=== PATIENT | female | born 1965 ===

== ENCOUNTER 2020-04-08 07:56 | Outpatient (RCR) | payer BC, SELFPAY | END 2020-05-08 07:58 | disposition home or self-care (01) | LOC: HO.WCC 07:56 | PROVIDERS: PCP Internal Medicine; Visit Provider Surgery | DX: L73.2 Hidradenitis suppurativa (principal); L08.9 Local infection of the skin and subcutaneous tissue, unspecified; I10 Essential (primary) hypertension; Z79.2 Long term (current) use of antibiotics; Z85.3 Personal history of malignant neoplasm of breast; Z92.3 Personal history of irradiation | CPT/HCPCS: 99203; 99214 ==

== ENCOUNTER → 2020-04-28 13:30 | Outpatient (BNVA) | payer BC, SELFPAY | PROVIDERS: PCP Internal Medicine; Visit Provider Internal Medicine | DX: Z76.89 Persons encountering health services in other specified circumstances (principal) ==

== ENCOUNTER 2020-09-01 06:36 | Day surgery (SDC) | payer BC, SELFPAY ==
[2020-09-01] VITALS (7 sets, daily range): BP systolic 110–132; BP diastolic 64–74; PULSE 79–96; RESP 16–20; TEMP 36.1–36.8; O2SAT 93–99; BMI 38.4; BMI 37.5
--- NOTE | ~2020-09-01 | CT_ITS ---
EXAMINATION: CT ABDOMEN AND PELVIS WITHOUT CONTRAST CLINICAL INFORMATION: Left flank and left lower abdominal pain. Likely stone. COMPARISON: CT abdomen/pelvis dated 12/21/2016. TECHNIQUE: Multidetector volumetric imaging was performed from the superior aspect of the liver through the pubic symphysis. Sagittal and coronal reformatted images were obtained on the technologist's workstation. This CT examination was performed using dose optimization techniques as appropriate, variously including the following: *Automated exposure control *Adjustment of mA and/or kV according to patient size (this includes techniques or standardized protocols for targeted exams where dose is matched to indication/reason for exam; i.e. extremities or head) *Use of iterative reconstruction technique DLP: 858 mGy-cm. FINDINGS: LUNG BASES: The visualized lung bases are unremarkable. LIVER, GALLBLADDER, AND BILIARY TREE: The liver is normal in size and shape. Parenchymal hypoattenuation, consistent with steatosis. No focal hepatic lesion or biliary ductal dilatation is present. Cholelithiasis. The gallbladder is slightly distended without wall thickening or associated inflammatory change. PANCREAS: Unremarkable. SPLEEN: Unremarkable. ADRENAL GLANDS: Unremarkable. KIDNEYS AND URETERS: There is a proximal left ureteral stone which measures approximately 0.7 x 0.5 cm and 1045 Hounsfield units. This is located at the level of the L2-L3 intervertebral disc and approximately 14.8 cm from the posterior axillary line. There is mild proximal hydroureteronephrosis with prominent left perinephric stranding. No additional renal or ureteral stone. No right-sided hydronephrosis or hydroureter. BLADDER: Unremarkable. GASTROINTESTINAL TRACT: No bowel wall thickening or associated inflammatory change. No small or large bowel obstruction. Unremarkable appendix. PERITONEAL CAVITY: No intra-abdominal free air or free fluid. No intra-abdominal mass or organized fluid collection/abscess formation. ABDOMINAL WALL: No significant hernia is appreciated. LYMPH NODES: No significant lymphadenopathy. VASCULAR: Unremarkable. PELVIC VISCERA: The uterus and adnexa are unremarkable. OSSEOUS STRUCTURES: Unremarkable. CT/CT abdomen pelvis wo con IMPRESSION: 1. Proximal left ureteral stone measuring up to 0.7 cm and 1045 Hounsfield units. This is located at the level of the L2-L3 intervertebral disc and approximately 14.8 cm from the posterior axillary line. There is mild proximal hydroureteronephrosis with prominent left perinephric stranding. 2. No additional renal or ureteral stone. No right-sided hydronephrosis or hydroureter. Unremarkable urinary bladder. 3. Cholelithiasis without CT evidence of acute cholecystitis.
--- NOTE | ~2020-09-01 | FL_ITS ---
EXAMINATION: XR FLUOROSCOPY WITH IMAGES CLINICAL INFORMATION: Cystoscopy, ureteroscopy, retro, laser, stent COMPARISON: CT from earlier today TECHNIQUE: Fluoroscopy performed by Dr. Keyon Saba. Fluoroscopy time: 37.8 seconds Images: 2 FINDINGS: There is evidence of retrograde injection of contrast into what is likely the left ureter. A ureteral stent is placed. FL/FL guidance in OR IMPRESSION: Fluoroscopic guidance for retrograde pyelogram with ureteral stent placement. Please refer to procedural report for further information.
[2020-09-01 06:26] LABS: MANUAL DIFF FLAG NO
[2020-09-01 06:30] LABS: Basophils Percent Auto 0.3 % (0-2); Eosinophils Absolute Auto 0.1 X10*3/uL (0.0-0.4); Eosinophils Percent Auto 0.6 % (0-4); Glucose Urine UA NEG (NEG); Hematocrit 41.2 % (37-47); Hemoglobin 12.9 g/dl (12.0-16.0); Imm Gran Abs Auto 0.06 X10*3/uL (0.00-0.03); Imm Gran Pct Auto 0.6 % (0.0-0.4); Leukocyte Esterase Urine TRACE (NEG); Lymphocytes Absolute Auto 0.9 X10*3/uL (1.2-4.9); Lymphocytes Percent Auto 8.9 % (20-40); Mean Corpuscular HGB Conc 31.3 g/dl (31.0-35.0); Mean Corpuscular Hemoglobin 27.6 pg (27.0-33.0); Mean Platelet Volume 10.5 fL (9.4-12.3); Monocytes Absolute Auto 0.6 X10*3/uL (0.1-1.2); Monocytes Percent Auto 6.1 % (2-11); Neutrophils Absolute Auto 7.9 X10*3/uL (2.0-8.3); Neutrophils Percent Auto 83.5 % (45-73); Nitrite Urine NEG (NEG); Platelet Count 241 X10*3/uL (160-400); Red Blood Count 4.68 X10*6/uL (4.20-5.50); Red Cell Distribution Width 13.9 % (11.0-16.0); Specific Gravity - Urine >= 1.030 (1.005-1.025); UACC Culture Trigger YES; Urine Blood 3+ (NEG); Urine Ketones NEG (NEG); Urine Protein NEG (NEG-TRACE); White Blood Count 9.5 X10*3/uL (4.8-10.8)
[2020-09-01 06:31] LABS: Appearance Urine HAZY; Color Urine YELLOW
[2020-09-01 06:44] LABS: Bacteria Urine TRACE /LPF; Calcium Oxalate Crystals Urine TRACE /LPF; Mucus Urine TRACE /LPF; RBC Urine 30-49 /HPF (0); Squamous Epithelial Cell Urine 2+ /LPF
--- NOTE | 2020-09-01 06:53 | ED.ABDPAIN ---
HPI - Abdominal Pain General Chief Complaint: Abdominal Pain Stated Complaint: Flank pain Time Seen by Provider: 09/01/20 06:53 Source: patient Mode of arrival: ambulatory Limitations: no limitations History of Present Illness HPI narrative: left flank pain radiating to left lower abdomen for 4 hours MD elicited complaint: abdominal pain and flank pain Pertinent past history: none Onset (ago): hour(s) Pain Consistency: constant Location: LLQ and L flank Severity: moderate Quality: stabbing and sharp Radiation: LLQ Exacerbating factors: nothing Relieving factors: nothing Associated symptoms: nausea, vomiting and chills Related Data Home Medications Medication Instructions Recorded Confirmed anastrozole 1 mg tablet 1 mg PO DAILY 04/28/20 04/28/20 cholecalciferol (vitamin D3) 10 10 mcg PO DAILY 04/28/20 04/28/20 mcg (400 unit) capsule doxycycline hyclate 100 mg capsule 100 mg PO BID 04/28/20 04/28/20 levothyroxine 150 mcg tablet 150 mcg PO DAILY 04/28/20 04/28/20 losartan 25 mg tablet 25 mg PO DAILY 04/28/20 04/28/20 Previous Rx's Medication Instructions Recorded minocycline 100 mg capsule 100 mg PO BID 30 Days #60 cap 04/28/20 naproxen [Naprosyn] 500 mg PO BID #20 tab 09/01/20 ondansetron HCl [Zofran] 4 mg PO Q8H PRN #10 tab 09/01/20 tamsulosin [Flomax] 0.4 mg PO DAILY #10 cap 09/01/20 Allergies Allergy/AdvReac Type Severity Reaction Status Date / Time No Known Allergies Allergy Verified 04/28/20 13:44 [No Known Allergies*] Review of Systems Constitutional: Reports no additional constitutional complaints Eyes: Reports no additional eye complaints Denies dizziness Cardiovascular: Reports no additional cardiovascular complaints Respiratory: Reports as per HPI Gastrointestinal: Reports no additional gastrointestinal complaints Genitourinary: Reports no additional female genitourinary complaints Musculoskeletal: Reports no additional musculoskeletal complaints Skin/Breast: Denies rash Reports system reviewed and no additional complaints, except as documented, Denies dizziness and Denies Sensory deficit (Neuro) Psychiatric: Denies anxiety Physical Exam Vital Signs: Vital Signs: Last Vital Signs Temp 97.9 F 09/01/20 06:17 Pulse 89 09/01/20 06:17 Resp 18 09/01/20 06:17 BP 132/74 09/01/20 06:17 Pulse Ox 99 09/01/20 06:17 Body Mass Index 38.4 Const: General: healthy appearing Nutritional Appearance: overweight Orientation/consciousness: oriented to person and patient oriented x3 Limitations: no limitations HENMT: Head: Yes normal to inspection Ears: external ears normal General nose exam: Normal external nose present Mouth: Normal oral and palatal mucosa present and oropharynx normal Throat: Yes posterior oropharynx normal Eyes: General: appearance normal, both eyes and all related structures Neck: Other: supple Neck: Yes normal visual inspection Chest: Chest palpation & inspection: normal inspection of the chest Resp: Auscultation: clear to auscultation bilaterally Cardio: Jugular venous distension: no JVD Rate: regular rate Rhythm: regular rhythm Heart sounds: S1 normal heart sound present and S2 normal heart sound present GI: Inspection: Yes normal to inspection Palpation (GI): Soft to palpation, nontender and No hepatosplenomegaly present Auscultation: normal bowel sounds Back/Spine/Pelvis: Other: left CVAT Skin: General skin exam: no rashes or lesions noted Neuro: General: oriented to person and patient oriented x3 Cranial nerves: Yes CN's II-XII intact bilaterally Motor exam (neuro): 5/5 motor strength present throughout Sensory Exam: No Sensory deficit (Neuro) Extrem: General: Yes normal to inspection Psych: Appearance: grossly normal Course Course Course Narrative: patient with proximal stone 7mmx 5mm will refer to Dr. Saba MDM - Abdominal Pain MDM Narrative Medical decision making narrative: Patient will need likely stone removal referred to Dr. Saba Differential Diagnosis Differential diagnosis: Likely abdominal pain and calculus of kidney Lab Data Result diagrams: 09/01/20 06:16 09/01/20 06:16 Labs: Lab Results 09/01/20 09/01/20 09/01/20 Range/Units 06:16 06:16 06:16 WBC 9.5 (4.8-10.8) X10*3/uL RBC 4.68 (4.20-5.50) X10*6/uL Hgb 12.9 (12.0-16.0) g/dl Hct 41.2 (37-47) % MCV 88.0 (80-98) fL MCH 27.6 (27.0-33.0) pg MCHC 31.3 (31.0-35.0) g/dl RDW 13.9 (11.0-16.0) % Plt Count 241 (160-400) X10*3/uL MPV 10.5 (9.4-12.3) fL Immature Gran % (Auto) 0.6 H (0.0-0.4) % Neut % (Auto) 83.5 H (45-73) % Lymph % (Auto) 8.9 L (20-40) % [place] % (Auto) 6.1 (2-11) % Eos % (Auto) 0.6 (0-4) % Baso % (Auto) 0.3 (0-2) % Lymph # (Auto) 0.9 L (1.2-4.9) X10*3/uL [place] # (Auto) 0.6 (0.1-1.2) X10*3/uL Eos # (Auto) 0.1 (0.0-0.4) X10*3/uL Baso # (Auto) 0.0 (0.0-0.2) X10*3/uL Abs Immat Gran (auto) 0.06 H (0.00-0.03) X10*3/uL Absolute Neuts (auto) 7.9 (2.0-8.3) X10*3/uL Absolute Nucleated RBC 0.000 (0.0-0.012) X10*3/uL Nucleated RBC % (auto) 0.0 (0.0-0.2) /100WBC Sodium 140 (135-145) mmol/L Potassium 4.7 (3.3-5.1) mmol/L Chloride 105 (96-108) mmol/L Carbon Dioxide 25 (22-29) mmol/L Anion Gap 15 (12-20) BUN 23 H (9-16) mg/dL Creatinine 1.70 H (0.5-1.4) mg/dL Estim Creat Clear Calc 49.2 Estimated GFR 31 Random Glucose 112 (60-115) mg/dL Calcium 9.1 (8.4-10.2) mg/dL Total Bilirubin 0.4 (0.0-1.0) mg/dL AST 17 (5-31) U/L ALT 24 (0-31) U/L Alkaline Phosphatase 107 (39-117) U/L Total Protein 7.3 (6.5-8.0) g/dL Albumin 4.4 (3.5-5.0) g/dL Urine Color YELLOW Urine Appearance HAZY Urine pH 6.0 (5.0-8.0) Ur Specific [place] >= 1.030 H (1.005-1.025) Urine Protein NEG (NEG-TRACE) MG/DL Urine Glucose (UA) NEG (NEG) MG/DL Urine Ketones NEG (NEG) MG/DL Urine Blood 3+ H (NEG) Urine Nitrite NEG (NEG) Ur Leukocyte Esterase TRACE H (NEG) Urine RBC 30-49 H (0) /HPF Urine WBC 1-4 (0-4) /HPF Ur Squamous Epith Cells 2+ /LPF Calcium Oxalate Crystal TRACE /LPF Urine Bacteria TRACE /LPF Urine Mucus TRACE /LPF Discharge Plan Discharge Clinical Impression: Calculus of kidney Patient Disposition: Home, Self-Care Instructions: Renal Colic (ED) Prescriptions: New ondansetron HCl [Zofran] 4 mg tablet 4 mg PO Q8H PRN (Reason: nausea and vomiting) Qty: 10 RF: 0 naproxen [Naprosyn] 500 mg tablet 500 mg PO BID Qty: 20 RF: 0 tamsulosin [Flomax] 0.4 mg capsule 0.4 mg PO DAILY Qty: 10 RF: 0 No Action doxycycline hyclate 100 mg capsule 100 mg PO BID RF: 0 levothyroxine 150 mcg tablet 150 mcg PO DAILY RF: 0 anastrozole 1 mg tablet 1 mg PO DAILY RF: 0 losartan 25 mg tablet 25 mg PO DAILY RF: 0 cholecalciferol (vitamin D3) 10 mcg (400 unit) capsule 10 mcg PO DAILY RF: 0 minocycline 100 mg capsule 100 mg PO BID 30 Days Qty: 60 RF: 0 Referrals: Keyon Saba MD [Physician] - 2 days Radha Herr MD [Primary Care Provider] - 2 days [facility] Past Medical History Medical History Breast cancer Hidradenitis suppurativa of left axilla Hidradenitis suppurativa of right axilla Hypertension Hypothyroid Psoriasis Surgical History History of lumpectomy of left breast History of thyroidectomy, total Social History Social History Alcohol intake: never Smoking Status: Never smoker Advance Directives: No Advance Directives Information Provided: No
[2020-09-01 06:54] LABS: Alanine Aminotransferase 24 U/L (0-31); Albumin Level 4.4 g/dL (3.5-5.0); Alkaline Phosphatase 107 U/L (39-117); Anion Gap 15 (12-20); Aspartate Amino Transferase 17 U/L (5-31); Bilirubin Total 0.4 mg/dL (0.0-1.0); Blood Urea Nitrogen 23 mg/dL (9-16); Calcium 9.1 mg/dL (8.4-10.2); Carbon Dioxide 25 mmol/L (22-29); Chloride 105 mmol/L (96-108); Creatinine Clr Calc Pharmacy 49.2; Estimated Glomerular Filt Rate 31; Glucose Random 112 mg/dL (60-115); Potassium 4.7 mmol/L (3.3-5.1); Sodium 140 mmol/L (135-145); Total Protein 7.3 g/dL (6.5-8.0)
[2020-09-01] MEDS: 0.9 % Sodium Chloride 1,000 ML 999 ML IVCONT ×2 (07:47→09:07)
[2020-09-01] MEDS: ondansetron HCL 4 MG/2 ML VIAL IVPUSH (07:47)
[2020-09-01] MEDS: Ketorolac Tromethamine 15 MG/ML VIAL IVPUSH (07:48)
--- NOTE | 2020-09-01 13:40 | P.CNUR_ITS ---
History of Present Illness Consult details Consult date: 09/01/20 Narrative: Juan Carlos is a pleasant 55-year-old female Had pain on left flank yesterday afternoon. Work this morning to pain on the left side there was per insistent in coming down to the left groin. Came to the hospital following this and completed her evaluation Did have associated nausea but no vomiting. No prior history of stones No family history of stones Did describe having an adverse effects from anesthesia also undergoing a breast cancer procedure number of years ago. [facility] Past Medical History Medical History Breast cancer Hidradenitis suppurativa of left axilla Hidradenitis suppurativa of right axilla Hypertension Hypothyroid Psoriasis Surgical History Surgical History History of lumpectomy of left breast History of thyroidectomy, total Social History Social History Alcohol intake: never Smoking Status: Never smoker Use of substances other than those prescribed or required for medical reasons: No Advance Directives: No Advance Directives Information Provided: No Meds Allergies Allergy/AdvReac Type Severity Reaction Status Date / Time No Known Allergies Allergy Verified 04/28/20 13:44 [No Known Allergies*] Home Medications Medication Instructions Recorded Confirmed Last Taken Type anastrozole 1 mg tablet 1 mg PO DAILY 04/28/20 04/28/20 Unknown History cholecalciferol (vitamin D3) 10 10 mcg PO DAILY 04/28/20 04/28/20 Unknown Hi [place] mcg (400 unit) capsule doxycycline hyclate 100 mg capsule 100 mg PO BID 04/28/20 04/28/20 Unknown History levothyroxine 150 mcg tablet 150 mcg PO DAILY 04/28/20 04/28/20 Unknown History losartan 25 mg tablet 25 mg PO DAILY 04/28/20 04/28/20 Unknown History Physical Exam Vital Signs: Vital Signs: Last Vital Signs Temp 97.8 F 09/01/20 11:41 Pulse 80 09/01/20 11:41 Resp 16 09/01/20 11:41 BP 131/69 09/01/20 11:41 Pulse Ox 96 09/01/20 11:41 Body Mass Index 37.5 Const: General: cooperative, healthy appearing, comfortable and no acute distress Nutritional Appearance: average body habitus Orientation/consciousness: oriented to person, oriented to place and oriented to time Eyes: General: appearance normal, both eyes and all related structures Chest: Chest palpation & inspection: normal inspection of the chest Resp: Effort & Inspection: normal respiratory effort Cardio: Rate: regular rate GI: Inspection: Yes normal to inspection Skin: Hair: normal Neuro: General: oriented to person, oriented to place and oriented to time Extrem: General: Yes normal to inspection Results Labs Result diagrams: 09/01/20 06:16 09/01/20 06:16 Labs: Abnormal lab results 09/01/20 09/01/20 09/01/20 Range/Units 06:16 06:16 06:16 Immature Gran % (Auto) 0.6 H (0.0-0.4) % Neut % (Auto) 83.5 H (45-73) % Lymph % (Auto) 8.9 L (20-40) % Lymph # (Auto) 0.9 L (1.2-4.9) X10*3/uL Abs Immat Gran (auto) 0.06 H (0.00-0.03) X10*3/uL BUN 23 H (9-16) mg/dL Creatinine 1.70 H (0.5-1.4) mg/dL Ur Specific [place] >= 1.030 H (1.005-1.025) Urine Blood 3+ H (NEG) Ur Leukocyte Esterase TRACE H (NEG) Urine RBC 30-49 H (0) /HPF Short CBC 09/01/20 Range/Units 06:16 WBC 9.5 (4.8-10.8) X10*3/uL Hgb 12.9 (12.0-16.0) g/dl Hct 41.2 (37-47) % Plt Count 241 (160-400) X10*3/uL BMP 09/01/20 06:16 Sodium 140 Potassium 4.7 Chloride 105 Carbon Dioxide 25 BUN 23 H Creatinine 1.70 H Calcium 9.1 Liver Function 09/01/20 Range/Units 06:16 Total Bilirubin 0.4 (0.0-1.0) mg/dL AST 17 (5-31) U/L ALT 24 (0-31) U/L Alkaline Phosphatase 107 (39-117) U/L Albumin 4.4 (3.5-5.0) g/dL Urine 09/01/20 Range/Units 06:16 Urine Color YELLOW Urine Appearance HAZY Urine pH 6.0 (5.0-8.0) Ur Specific [place] >= 1.030 H (1.005-1.025) Urine Protein NEG (NEG-TRACE) MG/DL Urine Glucose (UA) NEG (NEG) MG/DL All other labs normal. KIDNEYS AND URETERS: There is a proximal left ureteral stone which measures approximately 0.7 x 0.5 cm and 1045 Hounsfield units. This is located at the level of the L2-L3 intervertebral disc and approximately 14.8 cm from the posterior axillary line. There is mild proximal hydroureteronephrosis with prominent left perinephric stranding. No additional renal or ureteral stone. No right-sided hydronephrosis or hydroureter. Assessment and Plan (1) Calculus of kidney: Status: Acute (2) Hydronephrosis concurrent with and due to calculi of kidney and ureter: Status: Acute Hydronephrosis with kidney stone 7 mm in proximal left ureter Recommend ureteroscopy laser lithotripsy in stent placement Noted to have creatinine elevated disease 1.7. Likely secondary to acute partial obstruction on left side. Ureteroscopy We discussed the nature of the decision and reasonable alternatives for performing the above surgery. Interventions include chemical dissolution, ESWL, ureteroscopy with laser lithotripsy and stent placement, PCNL. Options such as medical therapy were discussed. The relative uncertainties and benefits related to each alternate procedure were adequately discussed. General surgical risks including, but not limited to, pain, bleeding, infection, myocardial infarction, pulmonary embolus, deep vein thrombosis and cerebrovascular accident which may result in further hospitalization were discussed. Full disclosure of the procedure as well as all major risks, benefits and complications were discussed including but not limited to damage to the urethra, bladder and kidney infection, damage to the ureter, stent migration or malposition, scarring to the renal pelvis, remnant stone fragments, subsequent stone passage with need for secondary procedures. The overall secondary procedure rate is approximately 10-15%. The success rate of the procedure was discussed. Success of the procedure in the short-term does not necessarily guarantee that long-term success will be maintained. Suitable follow up will need to be maintained. The patient showed understanding of discussion and wishes to proceed with - cystoscopy, retrograde, ureteroscopy, possible lithotripsy/stone basketing and stent on the left side
--- NOTE | 2020-09-01 14:48 | HO.ANESPROP2 ---
[facility] Active Problems Active Problems: All Active Problems (Updated 09/01/20 @ 13:42 by Keyon Saba MD) Hydronephrosis concurrent with and due to calculi of kidney and ureter (Acute) Calculus of kidney (Acute) Psoriasis (Acute) Hidradenitis suppurativa of right axilla (Acute) Hidradenitis suppurativa of left axilla (Acute) History of thyroidectomy, total (Acute) History of lumpectomy of left breast (Acute) Hypertension (Acute) Hypothyroid (Acute) Breast cancer (Acute) Past Medical History Medical History Breast cancer Hidradenitis suppurativa of left axilla Hidradenitis suppurativa of right axilla Hypertension Hypothyroid Psoriasis Surgical History Surgical History History of lumpectomy of left breast History of thyroidectomy, total Social History Social History Alcohol intake: never Smoking Status: Never smoker Meds Allergies Allergy/AdvReac Type Severity Reaction Status Date / Time No Known Allergies Allergy Verified 09/01/20 14:53 [No Known Allergies*] Home Medications Medication Instructions Recorded Confirmed Last Taken Type anastrozole 1 mg tablet 1 mg PO DAILY 04/28/20 04/28/20 Unknown History cholecalciferol (vitamin D3) 10 10 mcg PO DAILY 04/28/20 04/28/20 Unknown History mcg (400 unit) capsule doxycycline hyclate 100 mg capsule 100 mg PO BID 04/28/20 04/28/20 Unknown History levothyroxine 150 mcg tablet 150 mcg PO DAILY 04/28/20 04/28/20 Unknown History losartan 25 mg tablet 25 mg PO DAILY 04/28/20 04/28/20 Unknown History Exam Exam Date and Time: September 01, 2020 1448 Height,Weight and Vital Signs: Height 5 ft 7 in Weight 108.862 kg Last Vital Signs Temp 97.8 F 09/01/20 11:41 Pulse 80 09/01/20 11:41 Resp 16 09/01/20 11:41 BP 131/69 09/01/20 11:41 Pulse Ox 96 09/01/20 11:41 Pertinent Lab Results Pertinent Lab Results: Laboratory Tests 09/01/20 09/01/20 09/01/20 06:16 06:16 06:16 WBC 9.5 RBC 4.68 Hgb 12.9 Hct 41.2 MCV 88.0 MCH 27.6 MCHC 31.3 RDW 13.9 Plt Count 241 MPV 10.5 Immature Gran % (Auto) 0.6 H Neut % (Auto) 83.5 H Lymph % (Auto) 8.9 L [place] % (Auto) 6.1 Eos % (Auto) 0.6 Baso % (Auto) 0.3 Lymph # (Auto) 0.9 L [place] # (Auto) 0.6 Eos # (Auto) 0.1 Baso # (Auto) 0.0 Abs Immat Gran (auto) 0.06 H Absolute Neuts (auto) 7.9 Absolute Nucleated RBC 0.000 Nucleated RBC % (auto) 0.0 Sodium 140 Potassium 4.7 Chloride 105 Carbon Dioxide 25 Anion Gap 15 BUN 23 H Creatinine 1.70 H Estim Creat Clear Calc 49.2 Estimated GFR 31 Random Glucose 112 Calcium 9.1 Total Bilirubin 0.4 AST 17 ALT 24 Alkaline Phosphatase 107 Total Protein 7.3 Albumin 4.4 Urine Color YELLOW Urine Appearance HAZY Urine pH 6.0 Ur Specific [place] >= 1.030 H Urine Protein NEG Urine Glucose (UA) NEG Urine Ketones NEG Urine Blood 3+ H Urine Nitrite NEG Ur Leukocyte Esterase TRACE H Urine RBC 30-49 H Urine WBC 1-4 Ur Squamous Epith Cells 2+ Calcium Oxalate Crystal TRACE Urine Bacteria TRACE Urine Mucus TRACE Airway Mallampati Class: II TM Dist: >3cm Neck ROM: Full Loose/Missing/Broken Teeth: No Heart: RRR Lungs: CTA Assessment and Plan Assessment Anesthesia Assessment: Anesthesia Plan Discussed and Chart Reviewed Final Anesthetic Review NPO: Yes ASA Class: II Final Preanesthetic Review: Meds/Allgs Chart Reviewed, Consent Obtained/Reviewed and Anes Risks/Benef Reviewed Patient Risk: Low Procedure Risk: Low Anesthetic Plan Anesthetic Plan: GA Disposition: Standard PACU
[2020-09-01] MEDS: levoFLOXacin 500 MG TABLET PO (15:04)
--- NOTE | 2020-09-01 15:08 | MHC.SHP ---
Pre-Procedural Eval Section A The patient is an INPATIENT: No Changes since office visit: No Cold of Flu in the past 2 weeks, No New Medical Problems, No Changes in Medication and No Patient answered all questions The History & Physical has been completed within 30 days and I have reviewed it.: Yes Section B Chief Complaint: Flank pain Allergies: Allergies Allergy/AdvReac Type Severity Reaction Status Date / Time No Known Allergies Allergy Verified 09/01/20 14:53 [No Known Allergies*] Plan Diagnosis/Plan: Unchanged (Cystoscopy, left retrograde, left ureteroscopy laser lithotripsy stent placement.) I have reviewed the history and physical and performed a pertinent physical examination on my patient. No changes have occurred unless specified.
[2020-09-01] MEDS: Lactated Ringers 1,000 ML 50 ML IV (15:10)
--- NOTE | 2020-09-01 15:50 | PM.OP ---
Brief Operative Note Date of Service: 09/01/20 Pre-op diagnosis: Left proximal ureteric stone with hydronephrosis Post-op diagnosis: same Procedure: Cystoscopy, retrograde, ureteroscopy, laser lithotripsy, stone basketing, stent placement Implants: Left 6 [place] by 24 cm double-J stent Surgeon: Keyon Saba MD Anesthesia: GLMA Estimated blood loss (mL): 0 Pathology: other Condition: stable Disposition: same day
--- NOTE | 2020-09-01 15:54 | W.PM.OPN ---
Operative Note Operative Note Date of Service: 09/01/20 Narrative: PreOperative Diagnosis: Left proximal ureteric stone with hydronephrosis Post Operative Diagnosis: Left proximal ureteric stone with hydronephrosis Procedure: - left cystoscopy, retrograde - left dilatation of ureteric orifice under fluoroscopy - left rigid ureteroscopy, laser lithotripsy, stone basketing - left stent placement Surgeon: Dr Keyon Saba Anesthesia: General Indications for procedure: 55-year-old female. Presented through emergency room. Imaging with 7 mm x 4 mm stone in proximal ureter and hydroureteronephrosis. Creatinine is mildly elevated. Recommendation for intervention. No prior stone history. Procedure: After informed consent was verified patient was brought to the operating placed in supine position. Anesthesia was administered per protocol. Patient was placed in modified dorsal lithotomy position and prepped and draped in a sterile fashion. Safety pause time-out and side of surgery confirmed. Antibiotics confirmed. A 22 [place] cystoscope was placed per urethra. The bladder was emptied. Ureteric orifice normal position. The left ureteric orifice was cannulated and retrograde examination performed. Filling defects seen in the proximal portion of the left ureter. A sensor guidewire was placed without difficulty around the filling defect. A rigid ureteral scope was placed. The ureteric orifice was dilated. The scope was advanced. The stone was encountered. Using a 365 nmeter holmium laser stone was broken into pieces. Using a Zero tip 2.4 [place] basket the pieces removed and we sent for analysis. Once we were satisfied the stones have been removed a 6 [place] by 24 cm stent was placed without difficulty in the renal pelvis and good coil seen in the renal pelvis in the bladder. She tolerated the procedure well was extubated in operating room and transferred in a stable condition to recovery area Stent can be removed in 1 week Pathology: Stone Drains: 6 [place] by 24 cm stent
[2020-09-01] MEDS: Phenazopyridine HCL 100 MG TABLET PO (16:30)
[2020-09-07 15:31] LABS: Stone Source URETHRAL
== END 2020-09-01 17:00 | disposition home or self-care (01) ==
LOC: HO.ED 15:13 → HO.SSS 15:24
PROVIDERS: Urology; PCP Internal Medicine; Visit Provider Emergency Medicine
DX: N13.2 Hydronephrosis with renal and ureteral calculous obstruction (principal); I10 Essential (primary) hypertension; C50.912 Malignant neoplasm of unspecified site of left female breast; Z79.811 Long term (current) use of aromatase inhibitors; Z79.899 Other long term (current) drug therapy
CPT/HCPCS: 52356; 36415; 74176; 80053; 81001; 81003; 82365; 85025; 87086; 88300; 99284; C1769; C2617; J1100; J1885; J2250; J2405; J2550; J2765; J3010; Q9967

== ENCOUNTER → 2020-09-09 14:46 | Outpatient (BNVA) | payer BC, SELFPAY | PROVIDERS: PCP Internal Medicine; Visit Provider Urology | DX: N20.0 Calculus of kidney (principal) | CPT/HCPCS: 52310; 81002 ==

== ENCOUNTER 2020-10-24 08:02 | Outpatient (RCR) | payer BC, SELFPAY | END 2020-12-03 11:38 | disposition home or self-care (01) | LOC: HO.WCC 08:02 | PROVIDERS: Visit Provider Physician Assistant | DX: L73.2 Hidradenitis suppurativa (principal); I10 Essential (primary) hypertension; Z92.3 Personal history of irradiation; Z85.3 Personal history of malignant neoplasm of breast | CPT/HCPCS: 99212; 99213 ==

== ENCOUNTER 2022-02-18 10:22 | Outpatient (REF) | payer BC, SELFPAY ==
--- NOTE | ~2022-02-18 | US_ITS ---
EXAMINATION: US RETROPERITONEAL LIMITED (RENAL ONLY) CLINICAL INFORMATION: Calculus of kidney. COMPARISON: CT abdomen pelvis 09/01/2020 TECHNIQUE: Real-time imaging of the kidneys. FINDINGS: RIGHT KIDNEY: 10.5 x 6.5 x 5.2 cm (SAG x AP x TRV). The kidney is normal in size, contour, and echogenicity. Renal cortical thickness is normal. No calculi or focal parenchymal lesions. No hydronephrosis. LEFT KIDNEY: 11.3 x 5.6 x 4.3 cm (SAG x AP x TRV). The kidney is normal in size, contour, and echogenicity. Renal cortical thickness is normal. No calculi or focal parenchymal lesions. No hydronephrosis. US/US renal BI IMPRESSION: Unremarkable examination.
== END 2022-02-18 10:23 | disposition home or self-care (01) ==
LOC: HO.US 10:22
PROVIDERS: PCP Internal Medicine
DX: N20.0 Calculus of kidney (principal)
CPT/HCPCS: 76775

== ENCOUNTER 2023-02-08 08:49 | Outpatient (RCR) | payer BC, SELFPAY | END 2023-03-01 16:08 | disposition home or self-care (01) | LOC: HO.WCC 08:49 | PROVIDERS: PCP Internal Medicine; Visit Provider Physician Assistant | DX: L98.492 Non-pressure chronic ulcer of skin of other sites with fat layer exposed (principal); L03.116 Cellulitis of left lower limb; L40.0 Psoriasis vulgaris; L73.2 Hidradenitis suppurativa; T63.301A Toxic effect of unspecified spider venom, accidental (unintentional), initial encounter; I10 Essential (primary) hypertension; Z85.3 Personal history of malignant neoplasm of breast; Z79.899 Other long term (current) drug therapy | CPT/HCPCS: 11042; 99212 ==

== ENCOUNTER 2023-11-18 07:32 | Outpatient (AMB) | payer OTHER, SELFPAY ==
--- NOTE | 2023-11-18 07:44 | A.OFFVIS_ITS ---
Vital Signs 11/18/23 07:45 Height 5 ft 7 in Weight 227 lb 1.218 oz BMI 35.6 BP 124/62 Blood Pressure Location Rt brachial Position Sitting Pulse 86 Pulse Source Pulse Oximeter Pulse Oximetry (%) 98 Oxygen Delivery Method Room Air Intake Visit Reasons: Hand pain/PSA/lm Intake Note: New pt presents today for hand pain consult. She states her pain is in the left hand and goes up to the elbow. States she saw [facility] many years ago was diagnosed with PsA Allergies No Known Allergies [No Known Allergies*] Allergy (Verified 11/18/23 07:58) Medication List - Last Reconciled 11/18/23 by Hellen Silveira MD cholecalciferol (vitamin D3) 10 mcg PO DAILY levothyroxine 150 mcg PO DAILY losartan 25 mg PO DAILY pyridoxine (vitamin B6) 100 mg PO DAILY 90 days HPI Comments Details: This is a 58-year-old female with psoriasis and psoriatic arthritis who presents as a new patient. Patient states that she has had psoriasis for a long time. Her father, brother and sister all have psoriasis She stated that she was diagnosed with psoriatic arthritis in the . She was evaluated by Rheumatology and started on weekly medication likely methotrexate, she took it for a few years but it was stopped due to change in her lab results. Humira was suggested in 2005, around that time she was diagnosed with breast cancer and she decided not to take it due to risk of side effects. Currently she completed her breast cancer treatment. She finished her anastrozole course. Currently she gets mammograms periodically. She has been treating her psoriatic arthritis with Tylenol or Advil. Over the last few months she has been having frequent flare-ups affecting her left hand wrist and going up to her elbow, she takes Advil 600 mg about 5 days a week as needed for her joint pain. She also has significant psoriasis. [facility] Medical History Psoriasis Hidradenitis suppurativa of right axilla Hidradenitis suppurativa of left axilla Hypertension Hypothyroid Breast cancer Surgical History History of thyroidectomy, total History of lumpectomy of left breast Family History Brother Psoriasis Father Psoriasis Mother Psoriasis Social History Alcohol intake: never Female Reproductive History Menstrual Total pregnancies: 0 Full term: 0 Review of Systems Musc Reports deformity, Reports arthralgias, Reports joint swelling and Reports stiffness Skin/Breast Reports rash Physical Exam Vital Signs: Last Vital Signs Pulse 86 11/18/23 07:45 BP 124/62 11/18/23 07:45 Pulse Ox 98 11/18/23 07:45 Oxygen Delivery Method Room Air 11/18/23 07:45 BMI result Body Mass Index 35.6 Const General: cooperative, healthy appearing and comfortable Nutritional Appearance: obese morbidly obese Orientation/consciousness: patient oriented x3 Limitations: no limitations HEENT Head: Yes normocephalic and Yes atraumatic Mouth: moist mucous membranes Resp Effort & Inspection: normal respiratory effort and able to speak in complete sentences Auscultation: clear to auscultation bilaterally Cardio Rate: regular rate Rhythm: regular rhythm Skin Other: Significant psoriasis patches on her elbows, the back of her scalp, behind her ears, on her back, on legs Neuro General: patient oriented x3 Extrem Other: No significant synovitis or deformity right hand wrist I normal range of motion of elbows without pain Left wrist swelling, tenderness to palpation and pain with full flexion and extension Deformity of left ring finger Significantly reduced left hand pressurization mechanic strength Normal range of motion of knees without pain No ankle swelling or tenderness bilaterally Significant deformity affecting right foot with crumbling of toes Less severe deformities of left foot toes but she also has shortening of her toes Results Reviewed Results Reviewed: EXAM:? RIGHT FOOT AND ANKLE? 2008 ? ? HISTORY:? Pain.? Three views of the right ankle demonstrate no significant bone or joint abnormality.? Two views of the right foot demonstrate dramatic changes at the 2nd, 3rd and 4th metatarsophalangeal joints with significant erosions of the metatarsal heads and proximal phalangeal bases, subluxation of the 3rd and 4th metatarsophalangeal joints and fusion of at least the 3rd and 4th proximal and 3rd distal interphalangeal joints.? The appearance is consistent with progression of psoriatic arthritis.?? ? IMPRESSION:?? Unremarkable right ankle.?? Progression of psoriatic arthritis.? Tucker Mccallum M.D. Assessment & Plan Assessment & Plan (1) Psoriatic arthritis: Comment: dx 1990s deforming MTX for a few years DC due to lab abnormaliteis Code(s): L40.50 - Arthropathic psoriasis, unspecified Category: Medical Plan: This is a 58-year-old female with psoriasis and psoriatic arthritis who presents as a new patient. Patient has significant deforming disease on exam, extensive psoriasis patches. Patient was on methotrexate for a few years decades ago but was discontinued due to lab abnormalities. Today she has active synovitis affecting her left hand and wrist. Will prescribe a prednisone taper. She has been treating her symptoms with Tylenol and NSAIDs but her disease remains active and she continues to have deformities. Had a long conversation with patient today about psoriasis management and its complication if no treatment such as progressive deformities, increased risk of cardiovascular events Discussed the need for a DMARD. I provided patient with an Otezla sample. Advised patient to call the clinic if she tolerates it. If well tolerated, I will start prior authorization for Otezla Prednisone taper provided for current episode Check labs and x-rays today Labs before next visit in 3 months (2) Psoriasis: Code(s): L40.9 - Psoriasis, unspecified Category: Medical Plan: Management will depend on treatment of her psoriatic arthritis Plan I spent 49 minutes reviewing patient's chart, evaluating patient, ordering diagnostic workup, counseling patient and documenting in the chart Orders: Orders Complete Blood Count Auto Diff Today L40.50 - Arthropathic psoriasis, unspecified Protein Electrophoresis, Serum Today L40.50 - Arthropathic psoriasis, unspecified T Spot TB Today Z11.7 - Encounter for testing for latent tuberculosis infection Erythrocyte Sedimentation Rate Today L40.50 - Arthropathic psoriasis, unspecified XR hand wrist LT Today L40.50 - Arthropathic psoriasis, unspecified XR foot LT min 3V Today L40.50 - Arthropathic psoriasis, unspecified Complete Blood Count Auto Diff 3 Months L40.50 - Arthropathic psoriasis, unspecified Comprehensive Met. Panel 3 Months L40.50 - Arthropathic psoriasis, unspecified Erythrocyte Sedimentation Rate 3 Months L40.50 - Arthropathic psoriasis, unspecified Comprehensive Met. Panel Today L40.50 - Arthropathic psoriasis, unspecified C Reactive Protein Today L40.50 - Arthropathic psoriasis, unspecified Immunofixation Pnl, Serum Today L40.50 - Arthropathic psoriasis, unspecified Hepatitis A,B,C Profile Today Z11.59 - Encounter for screening for other viral diseases HLA B27 Today M45.9 - Ankylosing spondylitis of unspecified sites in spine XR hand wrist RT Today L40.50 - Arthropathic psoriasis, unspecified XR foot RT min 3V Today L40.50 - Arthropathic psoriasis, unspecified C Reactive Protein 3 Months L40.50 - Arthropathic psoriasis, unspecified Medications: New apremilast (Otezla Starter) Lot # [id number] 1 box Exp date it 08/27/2025 27 ea 0RF prednisone Take 3 tabs daily for 5 days, 2 tabs daily for 5 days, 1 tab daily for 5 days then stop 30 tabs 0RF Coding Level of Care Code New Pt Level 4 (04356) Diagnoses Psoriatic arthritis L40.50 Psoriasis L40.9
[2023-11-18 07:45] VITALS: BP 124/62; PULSE 86; O2SAT 98; BMI 35.6
== END 2023-11-18 08:17 | disposition home or self-care (01) ==
PROVIDERS: PCP Internal Medicine; Visit Provider Student in an Organized Health Care Education/Training Program
DX: L40.50 Arthropathic psoriasis, unspecified (principal); L40.9 Psoriasis, unspecified
CPT/HCPCS: 99204

== ENCOUNTER → 2023-11-18 07:32 | Outpatient (BNVA) | payer OTHER, SELFPAY | PROVIDERS: PCP Internal Medicine; Visit Provider Student in an Organized Health Care Education/Training Program ==

== ENCOUNTER 2023-11-22 07:07 | Outpatient (REF) | payer OTHER, SELFPAY ==
--- NOTE | ~2023-11-22 | XR_ITS ---
EXAMINATION: XR HAND, RIGHT CLINICAL INFORMATION: Arthropathic cirrhosis. COMPARISON: None available. TECHNIQUE: PA, lateral, and oblique views of the right hand. FINDINGS: Bony alignment and mineralization are normal. There is a neutral ulnar variance. No fracture or dislocation is seen. The proximal and distal carpal rows are intact. There is mild arthritic change of the second and third distal interphalangeal joints. There is mild arthritic change of the second proximal interphalangeal joint. No fracture or dislocation is seen. There is no abnormal bone erosion. No focal soft tissue swelling, gas or foreign body is seen. XR/XR hand wrist RT IMPRESSION: 1. There is mild arthritic change of the second and third fingers, as detailed. 2. No fracture or dislocation is seen. 3. There is no abnormal focal bone erosion. EXAMINATION: XR HAND, LEFT CLINICAL INFORMATION: Arthropathic psoriasis. COMPARISON: None available. TECHNIQUE: PA, lateral, and oblique views of the left hand. FINDINGS: Bony alignment and mineralization are normal. There is a neutral ulnar variance. No fracture or dislocation is seen. There is mild arthritic change of the second and third distal interphalangeal joints, and marked arthritic change is seen of the fourth distal interphalangeal joint, with a central erosion and mild angulation. There is mild arthritic change of the second proximal interphalangeal joint. No fracture or dislocation is seen. There is mild soft tissue swelling of the fourth finger. No soft tissue gas or foreign body seen IMPRESSION: There are arthritic changes of the fingers, with a central erosion noted of the fourth distal interphalangeal joint. This raises the possibility of inflammatory arthritides including or erosive osteoporosis, psoriasis, Micki's syndrome, gout and rheumatoid arthritis. Please correlate clinically.
--- NOTE | ~2023-11-22 | XR_ITS ---
EXAMINATION: XR HAND, RIGHT CLINICAL INFORMATION: Arthropathic cirrhosis. COMPARISON: None available. TECHNIQUE: PA, lateral, and oblique views of the right hand. FINDINGS: Bony alignment and mineralization are normal. There is a neutral ulnar variance. No fracture or dislocation is seen. The proximal and distal carpal rows are intact. There is mild arthritic change of the second and third distal interphalangeal joints. There is mild arthritic change of the second proximal interphalangeal joint. No fracture or dislocation is seen. There is no abnormal bone erosion. No focal soft tissue swelling, gas or foreign body is seen. XR/XR hand wrist LT IMPRESSION: 1. There is mild arthritic change of the second and third fingers, as detailed. 2. No fracture or dislocation is seen. 3. There is no abnormal focal bone erosion. EXAMINATION: XR HAND, LEFT CLINICAL INFORMATION: Arthropathic psoriasis. COMPARISON: None available. TECHNIQUE: PA, lateral, and oblique views of the left hand. FINDINGS: Bony alignment and mineralization are normal. There is a neutral ulnar variance. No fracture or dislocation is seen. There is mild arthritic change of the second and third distal interphalangeal joints, and marked arthritic change is seen of the fourth distal interphalangeal joint, with a central erosion and mild angulation. There is mild arthritic change of the second proximal interphalangeal joint. No fracture or dislocation is seen. There is mild soft tissue swelling of the fourth finger. No soft tissue gas or foreign body seen IMPRESSION: There are arthritic changes of the fingers, with a central erosion noted of the fourth distal interphalangeal joint. This raises the possibility of inflammatory arthritides including or erosive osteoporosis, psoriasis, Micki's syndrome, gout and rheumatoid arthritis. Please correlate clinically.
--- NOTE | ~2023-11-22 | XR_ITS ---
EXAMINATION: XR FOOT, RIGHT CLINICAL INFORMATION: Arthropathic psoriasis. COMPARISON: None available. TECHNIQUE: AP, lateral, and oblique views of the right foot. FINDINGS: Bony mineralization is normal. There are marked erosive changes of the third through fifth metatarsophalangeal joints. There is are fusions of the interphalangeal joints of the second through fifth toes, with apex medial angulations. No acute fracture, dislocation or joint effusion is seen. Boehler's angle is normal. There is a mild generalized soft tissue swelling, without gas or foreign body noted. XR/XR foot RT min 3V IMPRESSION: There are marked erosive changes of the third through fifth metatarsophalangeal joints. The findings suggest inflammatory arthritides including Micki's syndrome, psoriasis, gout erosive osteophyte is and rheumatoid arthritis. Please clinically clinically. EXAMINATION: XR FOOT, LEFT CLINICAL INFORMATION: Arthropathic psoriasis. COMPARISON: None available. TECHNIQUE: AP, lateral, and oblique views of the left foot. FINDINGS: Bony mineralization is normal. There are fusions of the interphalangeal joints of the first and second toes. There are third and fourth hammertoe deformities. No fracture, dislocation or left ankle joint effusion is seen. Boehler's angle is normal. There is a small posterior calcaneal spur. No focal soft tissue swelling, gas or foreign body seen. IMPRESSION: 1. No fracture or dislocation is seen. 2. There are fusions of the interphalangeal joints of the first and second toes. 3. There are third and fourth hammertoe deformities. 4. There is a small posterior calcaneal spur.
--- NOTE | ~2023-11-22 | XR_ITS ---
EXAMINATION: XR FOOT, RIGHT CLINICAL INFORMATION: Arthropathic psoriasis. COMPARISON: None available. TECHNIQUE: AP, lateral, and oblique views of the right foot. FINDINGS: Bony mineralization is normal. There are marked erosive changes of the third through fifth metatarsophalangeal joints. There is are fusions of the interphalangeal joints of the second through fifth toes, with apex medial angulations. No acute fracture, dislocation or joint effusion is seen. Boehler's angle is normal. There is a mild generalized soft tissue swelling, without gas or foreign body noted. XR/XR foot LT min 3V IMPRESSION: There are marked erosive changes of the third through fifth metatarsophalangeal joints. The findings suggest inflammatory arthritides including Micki's syndrome, psoriasis, gout erosive osteophyte is and rheumatoid arthritis. Please clinically clinically. EXAMINATION: XR FOOT, LEFT CLINICAL INFORMATION: Arthropathic psoriasis. COMPARISON: None available. TECHNIQUE: AP, lateral, and oblique views of the left foot. FINDINGS: Bony mineralization is normal. There are fusions of the interphalangeal joints of the first and second toes. There are third and fourth hammertoe deformities. No fracture, dislocation or left ankle joint effusion is seen. Boehler's angle is normal. There is a small posterior calcaneal spur. No focal soft tissue swelling, gas or foreign body seen. IMPRESSION: 1. No fracture or dislocation is seen. 2. There are fusions of the interphalangeal joints of the first and second toes. 3. There are third and fourth hammertoe deformities. 4. There is a small posterior calcaneal spur.
[2023-11-22 07:23] LABS: MANUAL DIFF FLAG NO
[2023-11-22 07:44] LABS: Basophils Percent Auto 0.5 % (0-2); Eosinophils Absolute Auto 0.1 X10*3/uL (0.0-0.4); Eosinophils Percent Auto 0.9 % (0-4); Hematocrit 42.6 % (37.0-47.0); Hemoglobin 13.8 g/dl (12.0-16.0); Imm Gran Abs Auto 0.03 X10*3/uL (0.00-0.03); Imm Gran Pct Auto 0.5 % (0.0-0.4); Lymphocytes Absolute Auto 1.1 X10*3/uL (1.2-4.9); Lymphocytes Percent Auto 16.8 % (20-40); Mean Corpuscular HGB Conc 32.4 g/dl (31.0-35.0); Mean Corpuscular Hemoglobin 27.8 pg (27.0-33.0); Mean Corpuscular Volume 85.9 fL (80.0-98.0); Mean Platelet Volume 10.6 fL (9.4-12.3); Monocytes Absolute Auto 0.3 X10*3/uL (0.1-1.2); Neutrophils Percent Auto 77.3 % (45-73); Platelet Count 277 X10*3/uL (160-400); Red Blood Count 4.96 X10*6/uL (4.20-5.50); Red Cell Distribution Width 13.6 % (11.0-16.0); White Blood Count 6.5 X10*3/uL (4.8-10.8)
[2023-11-22 08:20] LABS: Erythrocyte Sedimentation Rate 25 MM/HR (0-20)
[2023-11-22 08:24] LABS: Alanine Aminotransferase 25 U/L (0-31); Albumin Level 4.5 g/dL (3.5-5.0); Alkaline Phosphatase 117 U/L (39-117); Anion Gap 15 (12-20); Aspartate Amino Transferase 20 U/L (5-31); Bilirubin Total 0.7 mg/dL (0.0-1.0); Blood Urea Nitrogen 12 mg/dL (9-16); C Reactive Protein 1.46 mg/dL (< or = 0.50); Calcium 9.8 mg/dL (8.4-10.2); Carbon Dioxide 22 mmol/L (22-29); Chloride 110 mmol/L (96-108); Estimated Glomerular Filt Rate > 60; Glucose Random 116 mg/dL (60-115); Potassium 3.6 mmol/L (3.3-5.1); Sodium 143 mmol/L (135-145); Total Protein 7.8 g/dL (6.5-8.0)
[2023-11-22 08:35] LABS: HBS Num1 0.42 mIU/mL (0-7.99); HBc Num1 0.12 S/CO (0.00-0.79); HBsAGNum1 0.25 S/CO (0.00-0.99); Hepatitis B Core Antibody Nonreactive (Nonreactive); Hepatitis B Surface Antigen Negative (Negative); ~HepC Num1 0.17 S/CO (0.00-0.79); ~Hepatitis A Antibody IgM Nonreactive (Nonreactive); ~Hepatitis B Surface Antibody NONREACTIVE (Nonreactive); ~Hepatitis C Antibody Nonreactive (Nonreactive)
[2023-11-24 11:53] LABS: Prot Elec - Albumin 4.2 g/dL (3.8-4.8); Prot Elec - Alpha1 0.4 g/dL (0.2-0.3); Prot Elec - Alpha2 0.9 g/dL (0.5-0.9); Prot Elec - Beta 1 0.5 g/dL (0.4-0.6); Prot Elec - Beta 2 0.4 g/dL (0.2-0.5); Prot Elec - Gamma 1.1 g/dL (0.8-1.7); Prot Elec - Total Protein 7.4 g/dL (6.1-8.1)
[2023-11-24 23:07] LABS: IgA 165 mg/dL (47-310); IgG 1130 mg/dL (600-1640); IgM 90 mg/dL (50-300)
[2023-11-25 07:19] LABS: TSpotTB Invalid (Negative)
[2023-11-26 13:57] LABS: HLA B27 Negative (Negative)
== END 2023-11-22 07:08 | disposition home or self-care (01) ==
LOC: HO.XRAY 07:07
PROVIDERS: PCP Internal Medicine; Visit Provider Student in an Organized Health Care Education/Training Program
DX: Z11.7 Encounter for testing for latent tuberculosis infection (principal); Z11.59 Encounter for screening for other viral diseases; M45.9 Ankylosing spondylitis of unspecified sites in spine; L40.50 Arthropathic psoriasis, unspecified; Z72.89 Other problems related to lifestyle
CPT/HCPCS: 36415; 73110; 73130; 73630; 80053; 82784; 84165; 85025; 85652; 86140; 86334; 86481; 86704; 86706; 86709; 86803; 86812; 87340

== ENCOUNTER 2024-03-05 14:40 | Outpatient (AMB) | payer OTHER, SELFPAY ==
--- NOTE | 2024-03-05 15:04 | MHC.OFFVIS ---
Vital Signs 03/05/24 15:08 Height 5 ft 7 in Weight 226 lb 6.636 oz BMI 35.5 BP 140/80 H Blood Pressure Location Rt brachial Position Sitting Pulse 84 Pulse Source Pulse Oximeter Pulse Oximetry (%) 98 Oxygen Delivery Method Room Air Intake Visit Reasons: PsA/CM Intake Note: Patient presents for PsA. Allergies No Known Allergies [No Known Allergies*] Allergy (Verified 03/05/24 15:07) Medication List - Last Reconciled 03/05/24 by Hellen Silveira MD apremilast (Otezla Starter) Lot # [id number] 1 box Exp date it 08/27/2025 cholecalciferol (vitamin D3) 10 mcg PO DAILY levothyroxine 150 mcg PO DAILY losartan 25 mg PO DAILY Otezla (apremilast) 30 mg PO BID NS prednisone Take 3 tabs daily for 5 days, 2 tabs daily for 5 days, 1 tab daily for 5 days then stop pyridoxine (vitamin B6) 100 mg PO DAILY 90 days HPI Comments Details: 59-year-old female with psoriatic arthritis returns for follow-up. She has been taking Otezla regularly for the last 3-4 months with significant improvement of her joints. It is well tolerated. Does not have anymore joint pain or swelling. Her psoriasis rash however has returned. She states that her insurance company would not approve her steroid cream. Initial history: This is a 58-year-old female with psoriasis and psoriatic arthritis who presents as a new patient. Patient states that she has had psoriasis for a long time. Her father, brother and sister all have psoriasis She stated that she was diagnosed with psoriatic arthritis in the . She was evaluated by Rheumatology and started on weekly medication likely methotrexate, she took it for a few years but it was stopped due to change in her lab results. Humira was suggested in 2005, around that time she was diagnosed with breast cancer and she decided not to take it due to risk of side effects. Currently she completed her breast cancer treatment. She finished her anastrozole course. Currently she gets mammograms periodically. She has been treating her psoriatic arthritis with Tylenol or Advil. Over the last few months she has been having frequent flare-ups affecting her left hand wrist and going up to her elbow, she takes Advil 600 mg about 5 days a week as needed for her joint pain. She also has significant psoriasis. [facility] Medical History Psoriasis Hidradenitis suppurativa of right axilla Hidradenitis suppurativa of left axilla Hypertension Hypothyroid Breast cancer Surgical History History of thyroidectomy, total History of lumpectomy of left breast Family History Brother Psoriasis Father Psoriasis Mother Psoriasis Social History Alcohol intake: never Female Reproductive History Menstrual Total pregnancies: 0 Full term: 0 Review of Systems Musc Denies arthralgias and Denies joint swelling Skin/Breast Reports rash Physical Exam Vital Signs: Last Vital Signs Pulse 84 03/05/24 15:08 BP 140/80 H 03/05/24 15:08 Pulse Ox 98 03/05/24 15:08 Oxygen Delivery Method Room Air 03/05/24 15:08 BMI result Body Mass Index 35.5 Const General: cooperative, healthy appearing and comfortable Nutritional Appearance: obese morbidly obese Orientation/consciousness: patient oriented x3 Limitations: no limitations HEENT Head: Yes normocephalic and Yes atraumatic Mouth: moist mucous membranes Resp Effort & Inspection: normal respiratory effort and able to speak in complete sentences Auscultation: clear to auscultation bilaterally Cardio Rate: regular rate Rhythm: regular rhythm Skin Other: Significant psoriasis patches on her elbows, the back of her scalp, behind her ears, on her back Neuro General: patient oriented x3 Extrem Other: No active synovitis today Deformity and shortening of left ring finger 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 today Left knee crepitus and reduced range of motion Normal range of motion of knees without pain No ankle swelling or tenderness bilaterally Significant deformity affecting right foot with crumbling of toes Less severe deformities of left foot toes but she also has shortening of her toes Results Reviewed Results Reviewed: Patient: Dana Wagoner MR#: [id number] : 1965 Acct:[id number] Age/Sex: 58 / F ADM Date: 11/22/23 Loc: [facility] Attending Dr: Hellen Silveira MD Ordering Physician: Hellen Silveira MD Date of Service: 11/22/23 Procedure(s): XR hand wrist LT Accession Number(s): [id number] cc: Radha Herr MD; Hellen Silveira MD~ EXAMINATION: XR HAND, RIGHT CLINICAL INFORMATION: Arthropathic cirrhosis. COMPARISON: None available. TECHNIQUE: PA, lateral, and oblique views of the right hand. FINDINGS: Bony alignment and mineralization are normal. There is a neutral ulnar variance. No fracture or dislocation is seen. The proximal and distal carpal rows are intact. There is mild arthritic change of the second and third distal interphalangeal joints. There is mild arthritic change of the second proximal interphalangeal joint. No fracture or dislocation is seen. There is no abnormal bone erosion. No focal soft tissue swelling, gas or foreign body is seen. XR/XR hand wrist LT IMPRESSION: 1. There is mild arthritic change of the second and third fingers, as detailed. 2. No fracture or dislocation is seen. 3. There is no abnormal focal bone erosion. EXAMINATION: XR HAND, LEFT CLINICAL INFORMATION: Arthropathic psoriasis. COMPARISON: None available. TECHNIQUE: PA, lateral, and oblique views of the left hand. FINDINGS: Bony alignment and mineralization are normal. There is a neutral ulnar variance. No fracture or dislocation is seen. There is mild arthritic change of the second and third distal interphalangeal joints, and marked arthritic change is seen of the fourth distal interphalangeal joint, with a central erosion and mild angulation. There is mild arthritic change of the second proximal interphalangeal joint. No fracture or dislocation is seen. There is mild soft tissue swelling of the fourth finger. No soft tissue gas or foreign body seen IMPRESSION: There are arthritic changes of the fingers, with a central erosion noted of the fourth distal interphalangeal joint. This raises the possibility of inflammatory arthritides including or erosive osteoporosis, psoriasis, Micki's syndrome, gout and rheumatoid arthritis. Please correlate clinically. Ordering Physician: Hellen Silveira MD Date of Service: 11/22/23 Procedure(s): XR foot LT min 3V Accession Number(s): [id number] cc: Radha Herr MD; Hellen Silveira MD~ EXAMINATION: XR FOOT, RIGHT CLINICAL INFORMATION: Arthropathic psoriasis. COMPARISON: None available. TECHNIQUE: AP, lateral, and oblique views of the right foot. FINDINGS: Bony mineralization is normal. There are marked erosive changes of the third through fifth metatarsophalangeal joints. There is are fusions of the interphalangeal joints of the second through fifth toes, with apex medial angulations. No acute fracture, dislocation or joint effusion is seen. Boehler's angle is normal. There is a mild generalized soft tissue swelling, without gas or foreign body noted. XR/XR foot LT min 3V IMPRESSION: There are marked erosive changes of the third through fifth metatarsophalangeal joints. The findings suggest inflammatory arthritides including Micki's syndrome, psoriasis, gout erosive osteophyte is and rheumatoid arthritis. Please clinically clinically. EXAMINATION: XR FOOT, LEFT CLINICAL INFORMATION: Arthropathic psoriasis. COMPARISON: None available. TECHNIQUE: AP, lateral, and oblique views of the left foot. FINDINGS: Bony mineralization is normal. There are fusions of the interphalangeal joints of the first and second toes. There are third and fourth hammertoe deformities. No fracture, dislocation or left ankle joint effusion is seen. Boehler's angle is normal. There is a small posterior calcaneal spur. No focal soft tissue swelling, gas or foreign body seen. IMPRESSION: 1. No fracture or dislocation is seen. 2. There are fusions of the interphalangeal joints of the first and second toes. 3. There are third and fourth hammertoe deformities. 4. There is a small posterior calcaneal spur. Assessment & Plan Assessment & Plan (1) Psoriatic arthritis: Comment: dx deforming MTX for a few years DC due to lab abnormaliteis Otezla 10/2023 effective for joints not skin Code(s): L40.50 - Arthropathic psoriasis, unspecified Category: Medical Plan: This is a 58-year-old female with psoriasis and erosive psoriatic arthritis who presents for follow-up. She has been taking Otezla regularly for the last 3 months, it is well tolerated with significant improvement of her synovitis. There is no active synovitis on exam today. per patient her insurance company denied her steroid cream that she was using. Her psoriasis is somewhat worse on exam. 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 We discussed potentially upgrading her treatment to a more potent DMARD such as TNF inhibitors or IL 17 or IL 23 inhibitors. Patient not interested injections and worried about side effects. I think the treatment for psoriasis should be optimized with potent topicals and light therapy Follow-up with ticket dispenser changer Labs before next visit in 4 months (2) Psoriasis: Code(s): L40.9 - Psoriasis, unspecified Category: Medical Plan: Follow-up with derm Plan I spent 29 minutes reviewing patient's chart, evaluating patient, ordering diagnostic workup, counseling patient and documenting in the chart Coding Level of Care Code Est Pt Level 4 (32982) Diagnoses Psoriatic arthritis L40.50 Psoriasis L40.9
[2024-03-05 15:08] VITALS: BP 140/80; PULSE 84; O2SAT 98; BMI 35.5
== END 2024-03-05 15:34 | disposition home or self-care (01) ==
PROVIDERS: PCP Internal Medicine; Visit Provider Student in an Organized Health Care Education/Training Program
DX: L40.50 Arthropathic psoriasis, unspecified (principal); L40.9 Psoriasis, unspecified
CPT/HCPCS: 99214

== ENCOUNTER → 2024-03-05 14:40 | Outpatient (BNVA) | payer OTHER, SELFPAY | PROVIDERS: PCP Internal Medicine; Visit Provider Student in an Organized Health Care Education/Training Program ==

== ENCOUNTER 2024-07-11 08:50 | Outpatient (AMB) | payer OTHER, SELFPAY ==
[2024-07-11 09:00] VITALS: BP 124/82; PULSE 77; O2SAT 97; BMI 35.8
--- NOTE | 2024-07-11 09:00 | MHC.OFFVIS ---
Vital Signs 07/11/24 09:00 Height 5 ft 7 in Weight 228 lb 8 oz BMI 35.8 BP 124/82 Blood Pressure Location Rt brachial Position Sitting Pulse 77 Pulse Source Pulse Oximeter Pulse Oximetry (%) 97 Oxygen Delivery Method Room Air Intake Visit Reasons: PsA/CM Intake Note: Patient presents follow up PSA. Allergies No Known Allergies [No Known Allergies*] Allergy (Verified 07/11/24 09:02) HPI HPI PsA/CM: Details: PsO is persistent in left calf, thigh, buttocks, right toes, scalp, and bilateral arms. She was prescribed new topical therapy. She has resolution of psoriasis around right knee and calf. She sees [facility]. She has home UV light therapy, which she was doing at home. She will be seeing Dermatology next month. Denies joint stiffness or joint pain. [facility] Medical History Psoriasis Hidradenitis suppurativa of right axilla Hidradenitis suppurativa of left axilla Hypertension Hypothyroid Breast cancer Surgical History History of thyroidectomy, total History of lumpectomy of left breast Family History Brother Psoriasis Father Psoriasis Mother Psoriasis Social History Alcohol intake: never Review of Systems Const All systems reviewed & are unremarkable except as noted in HPI and below Physical Exam Vital Signs: Last Vital Signs Pulse 77 07/11/24 09:00 BP 124/82 07/11/24 09:00 Pulse Ox 97 07/11/24 09:00 Oxygen Delivery Method Room Air 07/11/24 09:00 BMI result Body Mass Index 35.8 Const Other: General: Comfortable CVS: RRR Respiratory: clear to auscultation bilaterally. Good respiratory effort Skin: Plaque psoriasis present on right dorsal foot and scalp MSK: No tenderness of any joints. No synovitis. Good range of motion of upper extremities and lower extremities. Subluxation of right 4th toe on 5th toe. Assessment & Plan Assessment & Plan (1) Psoriatic arthritis: Comment: Deforming psoriatic arthritis diagnosed in . She was on MTX for a few years DC due to lab abnormaliteis. Psoriatic arthritis has been in remission on Otezla via financial assistance program. Psoriasis is uncontrolled. Code(s): L40.50 - Arthropathic psoriasis, unspecified Category: Medical Plan: Continue Otezla 30 mg b.i.d. core financial assistance program Labs for drug monitoring on high-risk medication ordered this visit She will follow-up with Dermatology for management of psoriasis Return to clinic in 3 months (2) Other care home (current) drug therapy: Code(s): Z79.899 - Other care home (current) drug therapy Category: Medical Plan: See above Orders: Orders Alanine Aminotransferase Today Z79.60 - shelter (current) use of unspecified immunomodulators and immunosuppressants Aspartate Amino Transferase Today Z79.60 - shelter (current) use of unspecified immunomodulators and immunosuppressants Cyclic Citrullinated Peptide Today L40.50 - Arthropathic psoriasis, unspecified Rheumatoid Factor Today L40.50 - Arthropathic psoriasis, unspecified, Z79.899 - Other superintendent container terminal (current) drug therapy T Spot TB Today L40.50 - Arthropathic psoriasis, unspecified, Z79.899 - Other superintendent container terminal (current) drug therapy Erythrocyte Sedimentation Rate Today L40.50 - Arthropathic psoriasis, unspecified, Z79.899 - Other superintendent container terminal (current) drug therapy C Reactive Protein Today L40.50 - Arthropathic psoriasis, unspecified, Z79.899 - Other care home (current) drug therapy Coding Level of Care Code Est Pt Level 4 (74364) Complex EM visit Add On G2211 Diagnoses Psoriatic arthritis L40.50 Other superintendent container terminal (current) drug therapy Z79.899
--- OUTSIDE RECORDS SUMMARY | 2024-07-11 09:42 | XMS_ITS | Clinical Summary ---
Author Organization [facility] Address [address] [place] [address] Care Team Providers Care Catia Designer Name Role Phone Radha Herr MD Primary Care Provider [phone] Allergies No known active allergies Medications Medication Sig Dispensed Refills Start Date End Date Status losartan (COZAAR) tablet 25 mg Take 1 tablet (25 mg total) by mouth daily. 0 Active levothyroxine (SYNTHROID, LEVOXYL) tablet 150 mcg Take 1 tablet (150 mcg total) by mouth every morning on an empty stomach. 0 Active vitamin D3 (VITAMIN D3) 10 MCG (400 UNIT) tablet Take 1 tablet (400 Units total) by mouth daily. 0 Active Pyridoxine HCl (VITAMIN B6 PO) Take by mouth. 0 Activ e anastrozole (ARIMIDEX) 1 MG tablet Take 1 tablet (1 mg total) by mouth daily 90 tablet 3 11/03/2021 Active Active Problems No known active problems Social History Tobacco Use Types Packs/Day Years Used Date Smoking Tobacco: Never Assessed Sex and Gender Information Value Date Recorded Sex Assigned at Not on file Gender Identity Not on file Sexual Orientation Not on file Job Start Date Occupation Industry Not on file Not on file Not on file Last Filed Vital Signs Vital Sign Reading Time Taken Comments Blood Pressure 148/84 02/18/2023 10:34 AM EDT Pulse 77 02/18/2023 10:34 AM EDT Temperature 36.4 ??C (97.5 ??F) 02/18/2023 10:34 AM E DT Respiratory Rate - - Oxygen Saturation 96% 02/18/2023 10:34 AM EDT Inhaled Oxygen Concentration - - Weight 109.3 kg (241 lb) 02/18/2023 10:34 AM EDT Height 170.2 cm (5' 7 ) 02/18/2023 10:34 AM EDT Body Mass Index 37.75 02/18/2023 10:34 AM EDT Plan of Treatment Health Maintenance Due Date Last Done Comments Hepatitis B Vaccines (1 of 3 - 3-dose series) 1965 Hepatitis C Screening 1965 Depression Screening 1979 Preventative Health Evaluation 1985 Cervical Cancer Screening (Pap Smear) 02/12/1988 Colon Cancer Screening (Colonoscopy) 02/12/2012 Breast Cancer Screening (Mammogram) 2017 Shingrix-Zoster Vaccine (1 of 2) 2017 DTap / Tdap / Td (2 - Td or Tdap) 11/16/2020 11/16/2010 COVID-19 Vaccine ( season) 2024 04/17/2021, 08/10/2020, 07/18/2020 Influenza Vaccine (#1) 2024 , 04/07/2022, 02/27/2021, Additional history exists Pneumococcal Vaccine Aged Out 09/06/2016, 06/02/19 17 No longer eligible based on patient's age to complete this topic RSV Ped < 20 months Aged Out No longe r eligible based on patient's age to complete this topic Care Teams Catia Designer Relationship Specialty Start Date End Date Radha Herr MD PCP - General Internal Medicine 10/26/19
--- OUTSIDE RECORDS SUMMARY | 2024-07-11 09:42 | XMS_ITS | Clinical Summary ---
Author Organization [facility] [address] [place] [address] [place] [phone] Phone Care Team Providers Care Talent Development Analyst Name Role Phone Radha Herr MD Primary Care Provider [phone] Allergies No known active allergies Medications cholecalcifero l (VITAMIN D-3) 25 mcg (1,000 unit) capsule Take 1 Cap by mouth daily. Active levothyroxine (SYNTHROID, LEVOTHROID) 150 mcg tablet Take 1 tablet (150 mcg total) by mouth 1 (one) time each day before breakfast. Except none on Sundays Active losartan (COZAAR) 25 mg tablet TAKE 1 TABLET BY MOUTH EVERY DAY 90 tablet 1 5 Active losartan (COZAAR) 25 mg tablet TAKE 1 TABLET BY MOUTH EVERY DAY 30 tablet 4 06/22/19 25 Discontinued Active Problems Problem Noted Date Diagnosed Date Osteopenia 06/06/2020 Hidradenitis axillaris 05/17/2019 Obesity (BMI 30-39.9) 09/22/2017 Vitamin D insufficiency 01/06/2015 Hypothyroidism 03/05/2014 Psoriasis 08/16/2005 Psoriatic arthropathy 06/08/2005 History of colon polyps Overview (05/18/2024): CN 04/15 - repeat 3 years Hypercholesteremia Hypertension Kidney stone Overview (05/18/2024): 09/17 left sided stone, stent placed and removed Personal history of malignant neoplasm of breast Overview (05/18/2024): LT BREAST CA 2018 Tubular adenoma Overview (05/18/2024): CN 04/15 - repeat 3 years Severe obesity (BMI 35.0-35.9 with comorbidity) Encounters Date Type Department Care Team Description 05/21/2024 9:00 AM EST Office Visit Adult Medicine [address] [phone] Radha Herr MD Routine general medical examination at a health care facility (Primary Dx); Primary hypertension; Hypercholesteremia; Osteopenia, unspecified location; Vitamin D insufficiency; Hypothyroidism due to acquired atrophy of thyroid from Last 3 Months Immunizations Name Administration Dates Next Due Influenza Quadravalent, MDCK , 0.5ml, preservative free (Flucelvax) 6mo and older 02/01/2024,02/07/2023,04/07/2022,02/27,03/27/2020,04/15/2019,02/19/2018 Influenza Quadravalent, MDCK , 0.5ml, with preservative (Flucelvax) 6mo and older 03/06/2017 Influenza trivalent, 0.5mL, preservative free (Fluarix; FluLaval; Fluzone) ages 6mo and older (Afluria) 3 years and older 06/02/2016 Birdback SARS-CoV-2 COVID-19, mRNA, LNP-S, preservative free 04/17/2021 Pneumococcal conjugate 13 va lent (Prevnar 13, PCV13) 2mo and older 06/02/2016 Pneumococcal polysaccharide 23 valent (Pneumovax 23) 2yo and older 09/06/2016 Td Tetanus diptheria (Tdvax) 7yo and older 09/11/2020,01/01/2016 Td, Unspecified 02/07/2004 Tdap Tetanus diptheria acell ular pertussis (Boostrix; Adacel) 7yo and older 11/16/2010 Surgical History Surgery Date Site/Laterality Comments THYROIDECTOMY 2013 Bilateral : Benign goiter COLONOSCOPY 04/07/2017 12 mm left colon polyp: tubulovillous adenoma. BREAST SURGERY 2018 : lt 2018 lt dcis COLONOSCOPY 07/17/2020 : Small angiodysplasia ascending colon, no polyps. KIDNEY STONE SURGERY stent removed SCREENING MAMMOGRAM 10/28/2023 Bilateral Medical History Medical History Date Comments Hypercholesteremia 04/06/2009 Tubular adenoma 09/07/2017 CN 04/15 - repea t 3 years Hypertension 09/07/2017 History of colon polyps 09/07/2017 CN 04/15 - repeat 3 years Kidney stone 09/11/202009/17 left sided stone, stent placed and removed Severe obesity (BMI 35.0-35. 9 with comorbidity) (CMS/HCC) 09/11/2020 Personal history of malignan t neoplasm of breast LT BREAST CA 2018 Family History Medical History Relation Name Comments Heart attack Father diabetes, lung and prostate cancer, Hypertension Mother CHF Breast cancer Other niece age 41 Thyroid disease Sister surgery for benign thyroid lesion Colon cancer Neg Hx Relation Name Status Comments Father Maternal Grandfather Maternal Grandmother Mother Alive Other Alive Paternal Grandfather Paternal Grandmother Sister Alive Social History Tobacco Use Types Packs/Day Years Used Date Smoking Tobacco: Never Smokeless Tobacco: Never Tobacco Cessation:Counseling Given: Not Answered Alcohol Use Standard Drinks/Week Comments No 0 (1 standard drink = 0.6 oz pur e alcohol) Housing Instability Answer Date Recorde d Are you worried that in the next 2 months you may not have stable housing? Patient declined 05/14/2024 Food Access & Nutrition Answer Date Rec orded Do you have access to a vari ety of food including fruits and vegetables? Patient declined 05/14/2024 Health Literacy Answer Date Recorded How often do you need to hav e someone help you when you read instructions, pamphlets, or other written material from your doctor or pharmacy? Patient declined 05/14/2024 Caregiver: How often do you need to have someone help you when you read instructions, pamphlets, or other written material from your doctor or pharmacy? Not on file 024 Financial Risk Answer Date Recorded How hard is it for you to pa y for the very basics like food, housing, medical care, and air conditioning / heating? Patient declined 05/14/2024 Transportation Answer Date Recorded Has the lack of transportati on kept you from meetings, work, or from getting things needed for daily living? Patient declined 05/14/2024 Has the lack of transportati on kept you from medical appointments or from getting medications? Patient declined 05/14/2024 Social Isolation Answer Date Recorded How often do you feel lonely or isolated from those around you? Patient declined 05/14/2024 Food Risk Answer Date Recorded Within the past 12 months we worried whether our food would run out before we got money to buy more. Patient declined 024 Within the past 12 months th e food we bought just didn't last and we didn't have money to get more. Patient declined 04/29 Dependent Care Answer Date Recorded Do you need help finding or paying for care for your loved ones. For example, child and family therapist or elderly care for an older adult? Patient declined 05/14/2024 Education Answer Date Recorded Do you think completing more education or training, like finishing a GED, going to college, or learning a trade, would be helpful for you? Patient declined 05/14/2024 Employment and Income Answer Date Recor ded During the last four weeks, have you been actively looking for work? Patient declined 05/14/2024 Living Situation Answer Date Recorded What is your living situation? 1 07/15/2023 Comments No Sex and Gender Information Value Date Recorded Sex Assigned at Not on file Legal Sex Female 8:57 PM EST Gender Identity Not on file Sexual Orientation Not on file Obstetrics History Last Filed Vital Signs Vital Sign Reading Time Taken Comments Blood Pressure 124/80 05/21/2024 8:57 AM EST Pulse 81 05/21/2024 8:57 AM EST Temperature 36.8 ??C (98.2 ??F) 05/21/2024 8:57 AM ES T Respiratory Rate 14 05/21/2024 8:57 AM EST Oxygen Saturation 97% 05/21/2024 8:57 AM EST Inhaled Oxygen Concentration - - Weight 104 kg (229 lb) 05/21/2024 8:57 AM EST Height 172.7 cm (5' 8 ) 05/21/2024 8:57 AM EST Body Mass Index 34.82 05/21/2024 8:57 AM EST Plan of Treatment Upcoming Encounters Date Type Department Care Team (Late st Contact Info) Description 08/31/2024 9:15 AM EDT Appointment Bone Density - [address] [phone] 11/06/2024 8:30 AM EDT Appointment Radiology Department - [address] [phone] 11/27/2024 8:15 AM EDT Office Visit Adult Medicine [facility] - [address] [phone] Radha Herr MD [address] [place] [address] Health Maintenance Due Date Last Done Comments Hepatitis B Vaccines (1 of 3 - 19+ 3-dose series) 1986 Zoster Vaccines (1 of 2) 1986 Pneumococcal Vaccine: 50+ Years (3 of 3 - PPSV23, PCV20 or PCV21) 09/06/2021 09/06/2016, 06/02/2016 Pneumococcal Vaccine: Pediatrics (0 to 5 Years) and At-Risk Patients (6 to 64 Years) (3 of 3 - PPSV23, PCV20 or PCV21) 09/06/2021 09/06/2016, 06/02/2016 HIV Screening 05/07/2022 COVID-19 Vaccine ( season) 2024 04/17/2021, 08/10/2020, 07/18/2020 Depression Screening 05/14/2025 05/14/2024 Social Influencers of Health Screening 05/14/2025 05/14/2024 Hypertension/CHF/CAD Annual BMP Blood Test 06/05/2025 06/05/2024, 09/20/2023 Colorectal Cancer Screening: Colonoscopy 07/17/2025 07/17/2020 Cervical Cancer Screening: HPV 09/08/2025 09/08/2020 Breast Cancer Screening 10/27/2025 10/28/19 24, 10/28/2023, 10/21/2022, Additional history exists Cholesterol Screening (Lipid Panel) 09/19/2028 09/20/2023 DTaP,Tdap,and Td Vaccines (5 - Td or Tdap) 09/11/2030 09/11/2020, 01/01/2016, 11/16/2010, Additional history exists Hepatitis C Screening Completed 07/25/2020 Influenza Vaccine Completed 02/01/2024, , 04/07/2022, Additional history exists HIB Vaccines Aged Out No longer eligi ble based on patient's age to complete this topic HPV Vaccines Aged Out No longer eligi ble based on patient's age to complete this topic Hepatitis A Vaccines Aged Out No long er eligible based on patient's age to complete this topic IPV Vaccines Aged Out No longer eligi ble based on patient's age to complete this topic MMR Vaccines Aged Out No longer eligi ble based on patient's age to complete this topic Meningococcal ACWY Vaccine Aged Out N o longer eligible based on patient's age to complete this topic Meningococcal B Vacine Aged Out No lo nger eligible based on patient's age to complete this topic RSV Immunization Patients Under 20 months Aged Out No longer eligible based on patient's age to complete this topic Varicella Vaccines Aged Out No longer eligible based on patient's age to complete this topic Procedures Procedure Name Priority Date/Time Associated Diagnosis Comments CBC WITH AUTO DIFFERENTIAL Routine 06/05/2024 9:32 AM EST Routine general medical examination at a health care facility THYROID STIMULATING HORMONE Routine 06/05/2024 9:32 AM EST Hypothyroidism due to acquired atrophy of thyroid CBC AND DIFFERENTIAL Routine 06/05/2024 9:32 AM EST Routine general medical examination at a health care facility BASIC METABOLIC PANEL Routine 06/05/2024 9:32 AM EST Primary hypertension Osteopenia, unspecified location SCREENING MAMMOGRAPHY BI 2-VIEW BREAST INC CAD Routine 10/28/2023 1:06 PM EDT Encounter for screening mammogram for malignant neoplasm of breast Personal history of malignant neoplasm of breast LIPID PANEL Routine 09/20/2023 HM HPV Routine 09/08/2020 HEPATITIS C SCREENING Routine 07/25/2020 COLONOSCOPY Routine 07/17/2020 from Last 3 Months or Most Recently Relevant to Health Maintenance Results * (ABNORMAL) CBC auto differential (06/05/2024 9:32 AM EST) WBC 7.9 4.8 - 10.8 K/mcL LAB HEMETOLOGY METHOD 06/05/2024 12:[address] [facility] RBC 4.90(H) 3.80 - 4.80 M/mcL LAB HEMETOLOGY METHOD 06/05/2024 12:[address] [facility] Hemoglobin 13.7 11.5 - 16.0 g/dL LAB HEMETOLOGY METHOD 06/05/2024 12:[address] [facility] Hematocrit 43.5 35.0 - 47.0 % LAB HEMETOLOGY METHOD 06/05/2024 12:[address] [facility] MCV 88.1 79.0 - 98.0 FL LAB HEMETOLOGY METHOD 06/05/2024 12:[address] [facility] MCH 27.7 27.0 - 32.0 pcg LAB HEMETOLOGY METHOD 06/05/2024 12:[address] [facility] MCHC 31.5(L) 32.0 - 37.0 g/dL LAB HEMETOLOGY METHOD 06/05/2024 12:[address] [facility] RDW 13.9 11.0 - 15.0 % LAB HEMETOLOGY METHOD 06/05/2024 12:[address] [facility] Platelets 288 130 - 400 K/mcL LAB HEMETOLOGY METHOD 06/05/2024 12:[address] [facility] MPV 10.7 7.0 - 11.0 FL LAB HEMETOLOGY METHOD 06/05/2024 12:[address] [facility] NRBC 0.0 <1.0 % LAB HEMETOLOGY METHOD 06/05/2024 12:[address] [facility] NRBC Absolute 0.00 <0.10 K/mcL LAB HEMETOLOGY METHOD 06/05/2024 12:[address] [facility] Neutrophils Relative 72.3 % LAB HEMETOLOGY METHOD 06/05/2024 12:[address] [facility] Lymphocytes Relative 21.5 % LAB HEMETOLOGY METHOD 06/05/2024 12:[address] [facility] Monocytes Relative 4.7 % LAB HEMETOLOGY METHOD 06/05/2024 12:[address] [facility] Eosinophils Relative 0.6 % LAB HEMETOLOGY METHOD 06/05/2024 12:[address] [facility] Basophils Relative 0.5 % LAB HEMETOLOGY METHOD 06/05/2024 12:[address] [facility] Immature Granulocytes Relative 0.4 % LAB HEMETOLOGY METHOD 06/05/2024 12:[address] [facility] Neutrophils Absolute 5.67 1.50 - 7.00 K/mcL LAB HEMETOLOGY METHOD 06/05/2024 12:[address] [facility] Lymphocytes Absolute 1.69 1.00 - 5.00 K/mcL LAB HEMETOLOGY METHOD 06/05/2024 12:[address] [facility] Monocytes Absolute 0.37 0.20 - 1.00 K/mcL LAB HEMETOLOGY METHOD 06/05/2024 12:[address] [facility] Eosinophils Absolute 0.05 0.00 - 0.50 K/mcL LAB HEMETOLOGY METHOD 06/05/2024 12:[address] [facility] Basophils Absolute 0.04 0.00 - 0.20 K/mcL LAB HEMETOLOGY METHOD 06/05/2024 12:[address] [facility] Immature Granulocytes Absolute 0.03 0.00 - 0.03 K/mcL LAB HEMETOLOGY METHOD 06/05/2024 12:18 PM EST [facility] Blood Venous blood specimen / Unknown Venipuncture / Unknown 06/05/2024 9:32 AM EST 06/05/2024 9:32 AM EST Radha Herr MD LAB BLOOD ORDERABLES Final Resul t Performing Organization Address [facility] Co de Phone Number [facility] [address] [place] [address], [place] [phone] * (ABNORMAL) Thyroid stimulating hormone (06/05/2024 9:32 AM EST) Pathologist [facility] [place] TSH 0.17(L) 0.40 - 4.00 mcIU/mL LAB CHEMISTRY METHOD 06/05/2024 2:27 PM EST [facility] Blood Venous blood specimen / Unknown Venipuncture / Unknown 06/05/2024 9:32 AM EST 06/05/2024 9:32 AM EST us Radha Herr MD LAB BLOOD ORDERABLES Final Resul t Performing Organization Address [facility] de Phone Number [facility] [address] [place] [address], [place] [phone] * Basic metabolic panel (06/05/2024 9:32 AM EST) Pathologist [facility] [place] Sodium 139 133 - 145 mmol/L LAB CHEMISTRY METHOD 06/05/2024 2:15 PM EST [facility] Potassium 4.7 3.5 - 5.5 mmol/L LAB CHEMISTRY METHOD 06/05/2024 2:[address] [facility] Chloride 106 96 - 110 mmol/L LAB CHEMISTRY METHOD 06/05/2024 2:[address] [facility] CO2 27 21 - 32 mmol/L LAB CHEMISTRY METHOD 06/05/2024 2:[address] [facility] Anion Gap 6 3 - 11 LAB CHEMISTRY METHOD 06/05/2024 2:[address] [facility] Glucose 94 70 - 100 mg/dL LAB CHEMISTRY METHOD 06/05/2024 2:[address] [facility] BUN 14 5 - 25 mg/dL LAB CHEMISTRY METHOD 06/05/2024 2:[address] [facility] Creatinine 0.91 0.50 - 1.10 mg/dL LAB CHEMISTRY METHOD 06/05/2024 2:[address] [facility] eGFR 74 >=60 mL/min/1. 73m2 LAB CHEMISTRY METHOD 06/05/2024 2:[address] [facility] Comment:Calculation based on the??Chronic Kidney Disease Epidemiology Collaboration (CKD-EPI) equation refit??without adjustment for race. BUN/Creatinine Ratio 15.4 LAB CHEMISTRY METHOD 06/05/2024 2:[address] [facility] Calcium 9.0 8.5 - 10.5 mg/dL LAB CHEMISTRY METHOD 06/05/2024 2:[address] [facility] Blood Venous blood specimen / Unknown Venipuncture / Unknown 06/05/2024 9:32 AM EST 06/05/2024 9:32 AM EST us Radha Herr MD LAB BLOOD ORDERABLES Final Resul t [facility] [address] [place] [address], * SCREENING MAMMOGRAPHY BI 2-VIEW BREAST INC CAD (10/28/2023 1:06 PM EDT) Anatomical Region Laterality Modality Radiographic Ambika ging 10/21/2022 8:38 AM EDT Narrative 10/29/2023 10:18 AM EDT This is a summary report. The complete report is available in the patient's medical record. If you cannot access the medical record, please contact the sending organization for a detailed fax or copy. History: Personal history of left breast cancer, status postlumpectomy in 2018 Study: SCREENING MAMMOGRAPHY BI 2-VIEW BREAST INC CAD Technique: Bilateral full-field digital screening mammography is obtained and read in conjunction with computer aided detection. ??Tomosynthesis as well as 2D C-View imaging were obtained. Comparison: Comparison made to multiple prior, most recent October 21, 2022, and most remote November 05, 2009. Breast composition: There are scattered areas of fibroglandular density. Right breast: No suspicious masses, suspicious calcifications or other abnormalities are seen. Left breast: Posttreatment changes. ??No suspicious masses, suspicious calcifications or other abnormalities are seen. IMPRESSION: Impression: Bilateral breasts: Benign, no specific mammographic evidence of malignancy. ??Normal interval follow-up is recommended in 12 months. BI-RADS: Category 2: Benign Procedure Note Isa Cuellar MD - 03/14/2024 This is a summary report. The complete report is available in thepatient's medical record. If you cannot access the medical record, pleasecontact the sending organization for a detailed fax or copy. History: Personal history of left breast cancer, status postlumpectomy [id number] Study: SCREENING MAMMOGRAPHY BI 2-VIEW BREAST INC CAD Technique: Bilateral full-field digital screening mammography is obtainedand read in conjunction with computer aided detection. Tomosynthesis aswell as 2D C-View imaging were obtained. Comparison: Comparison made to multiple prior, most recent October 21, 2022,and most remote November 05, 2009. Breast composition: There are scattered areas of fibroglandular density. Right breast: No suspicious masses, suspicious calcifications or otherabnormalities are seen. Left breast: Posttreatment changes. No suspicious masses, suspiciouscalcifications or other abnormalities are seen. IMPRESSION: Impression: Bilateral breasts: Benign, no specific mammographic evidence ofmalignancy. Normal interval follow-up is recommended in 12 months. BI-RADS: Category 2: Benign us Radha Herr MD IMG XR PROCEDURES Final Result * (ABNORMAL) Lipid panel (09/20/2023) LDL/HDL Ratio 4 0 - 4 Triglycerides 106 0 - 150 mg/dL Cholesterol 202(A) 0 - 200 mg/dL HDL 51 >=40 mg/dL LDL Cholesterol 130(A) 0 - 100 mg/dL Blood Venous blood specimen / Unknown [facility] Provider LAB BLOOD ORDERABLES Nabila l Result * Cervical Cancer Screening: HPV (09/08/2020) Pathologist [facility] Cervical Cancer Screening: HPV abstracted, negative [facility] Provider HEALTH MAINTENANCE Final Result * Hepatitis C Screening (07/25/2020) Pathologist [facility] Hepatitis C Screening abstracted [facility] Provider HEALTH MAINTENANCE Final Result * Colonoscopy (07/17/2020) [facility] Colonoscopy abstracted, no interpretation Anatomical Region Laterality Modality Other [facility] Provider HEALTH MAINTENANCE Final Result from Last 3 Months or Most Recently Relevant to Health Maintenance Insurance [employer] [place] [id number] Advance Directives Documents on File Type Date Recorded 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 Health Care Decision (hx) 07/17/2020 AD JOHNSON DIRECTIVE Health Care Decision (hx) 07/17/2020 AD JOHNSON DIRECTIVE Health Care Decision (hx) 07/17/2020 AD JOHNSON DIRECTIVE Health Care Decision (hx) 11/09/2017 AD JOHNSON DIRECTIVE Health Care Decision (hx) 11/09/2017 AD JOHNSON DIRECTIVE Health Care Decision (hx) 11/09/2017 AD JOHNSON DIRECTIVE Health Care Decision (hx) 11/09/2017 AD JOHNSON DIRECTIVE Health Care Decision (hx) 11/09/2017 AD JOHNSON DIRECTIVE Health Care Decision (hx) 11/09/2017 AD JOHNSON DIRECTIVE Health Care Decision (hx) 11/09/2017 AD JOHNSON DIRECTIVE Health Care Decision (hx) 11/09/2017 AD JOHNSON DIRECTIVE Health Care Decision (hx) 11/09/2017 AD JOHNSON DIRECTIVE Health Care Decision (hx) 11/09/2017 AD JOHNSON DIRECTIVE Health Care Decision (hx) 11/09/2017 AD JOHNSON DIRECTIVE Health Care Decision (hx) 11/09/2017 AD JOHNSON DIRECTIVE Care Teams Talent Development Analyst Relationship Specialty Start Date End Date Radha Herr MD [address] [place] [id number] PCP - General 08/07/99
== END 2024-07-11 09:36 | disposition home or self-care (01) ==
PROVIDERS: PCP Internal Medicine; Visit Provider Internal Medicine Rheumatology
DX: L40.50 Arthropathic psoriasis, unspecified (principal); Z79.899 Other long term (current) drug therapy
CPT/HCPCS: 99214

== ENCOUNTER 2024-07-11 08:50 | Outpatient (REF) | payer OTHER, SELFPAY ==
--- OUTSIDE RECORDS SUMMARY | 2024-07-11 10:52 | XMS_ITS | Clinical Summary ---
Author Organization [facility] [address] [place] [address] [place] [phone] Phone Care Team Providers Care Blanket Weaver Name Role Phone Radha Herr MD Primary Care Provider [phone] Allergies No known active allergies Medications cholecalcifero [...] 9:00 AM EST Office Visit Adult Medicine [address] [phone] Radha Herr MD Routine general medical examination [...] older (Afluria) 3 years and older 06/02/2016 [employer] SARS-CoV-2 COVID-19, mRNA, LNP-S, preservative free 04/17/2021 [...] care for your loved ones. For example, child's nurse or elderly care for an older adult? [...] 9:15 AM EDT Appointment Bone Density - [address] [phone] 11/06/2024 8:30 AM EDT Appointment Radiology Department - [address] [phone] 11/27/2024 8:15 AM EDT Office Visit Adult Medicine [facility] - [address] [phone] Radha Herr MD [address] [place] [address] Health Maintenance Due Date Last Done Comments [...] K/mcL LAB HEMETOLOGY METHOD 06/05/2024 12:18 PM [facility] RBC 4.90(H) 3.80 - 4.80 M/mcL LAB HEMETOLOGY METHOD 06/05/2024 12:18 PM [facility] Hemoglobin 13.7 11.5 - 16.0 g/dL LAB HEMETOLOGY METHOD 06/05/2024 12:18 PM [facility] Hematocrit 43.5 35.0 - 47.0 % LAB HEMETOLOGY METHOD 06/05/2024 12:18 PM [facility] MCV 88.1 79.0 - 98.0 FL LAB HEMETOLOGY METHOD 06/05/2024 12:18 PM [facility] MCH 27.7 27.0 - 32.0 pcg LAB HEMETOLOGY METHOD 06/05/2024 12:18 PM [facility] MCHC 31.5(L) 32.0 - 37.0 g/dL LAB HEMETOLOGY METHOD 06/05/2024 12:18 PM [facility] RDW 13.9 11.0 - 15.0 % LAB HEMETOLOGY METHOD 06/05/2024 12:18 PM [facility] Platelets 288 130 - 400 K/mcL LAB HEMETOLOGY METHOD 06/05/2024 12:18 PM [facility] MPV 10.7 7.0 - 11.0 FL LAB HEMETOLOGY METHOD 06/05/2024 12:18 PM [facility] NRBC 0.0 <1.0 % LAB HEMETOLOGY METHOD 06/05/2024 12:18 PM [facility] NRBC Absolute 0.00 <0.10 K/mcL LAB HEMETOLOGY METHOD 06/05/2024 12:18 PM [facility] Neutrophils Relative 72.3 % LAB HEMETOLOGY METHOD 06/05/2024 12:18 PM [facility] Lymphocytes Relative 21.5 % LAB HEMETOLOGY METHOD 06/05/2024 12:18 PM [facility] Monocytes Relative 4.7 % LAB HEMETOLOGY METHOD 06/05/2024 12:18 PM [facility] Eosinophils Relative 0.6 % LAB HEMETOLOGY METHOD 06/05/2024 12:18 PM [facility] Basophils Relative 0.5 % LAB HEMETOLOGY METHOD 06/05/2024 12:18 PM [facility] Immature Granulocytes Relative 0.4 % LAB HEMETOLOGY METHOD 06/05/2024 12:18 PM [facility] Neutrophils Absolute 5.67 1.50 - 7.00 K/mcL LAB HEMETOLOGY METHOD 06/05/2024 12:18 PM [facility] Lymphocytes Absolute 1.69 1.00 - 5.00 K/mcL LAB HEMETOLOGY METHOD 06/05/2024 12:18 PM [facility] Monocytes Absolute 0.37 0.20 - 1.00 K/mcL LAB HEMETOLOGY METHOD 06/05/2024 12:18 PM [facility] Eosinophils Absolute 0.05 0.00 - 0.50 K/mcL LAB HEMETOLOGY METHOD 06/05/2024 12:18 PM [facility] Basophils Absolute 0.04 0.00 - 0.20 K/mcL LAB HEMETOLOGY METHOD 06/05/2024 12:18 PM [facility] Immature Granulocytes Absolute 0.03 0.00 - 0.03 K/mcL LAB HEMETOLOGY METHOD 06/05/2024 12:18 PM EST [facility] Blood Venous blood specimen / Unknown Venipuncture / Unknown 06/05/2024 9:32 AM EST 06/05/2024 9:32 AM EST Radha Herr MD LAB BLOOD ORDERABLES Final Resul t Performing Organization Address [facility] Co de Phone Number [facility] [address] [place] [address], [place] [phone] * (ABNORMAL) Thyroid stimulating hormone (06/05/2024 9:32 AM EST) Pathologist [facility] TSH 0.17(L) 0.40 - 4.00 mcIU/mL LAB CHEMISTRY METHOD 06/05/2024 2:27 PM EST [facility] Blood Venous blood specimen / Unknown Venipuncture / Unknown 06/05/2024 9:32 AM EST 06/05/2024 9:32 AM EST us Radha Herr MD LAB BLOOD ORDERABLES Final Resul t Performing Organization Address [facility] de Phone Number [facility] [address] [place] [address], [place] [phone] * Basic metabolic panel (06/05/2024 9:32 AM EST) Pathologist [facility] Sodium 139 133 - 145 mmol/L LAB CHEMISTRY METHOD 06/05/2024 2:15 PM EST [facility] Potassium 4.7 3.5 - 5.5 mmol/L LAB CHEMISTRY METHOD 06/05/2024 2:15 PM [facility] Chloride 106 96 - 110 mmol/L LAB CHEMISTRY METHOD 06/05/2024 2:15 PM [facility] CO2 27 21 - 32 mmol/L LAB CHEMISTRY METHOD 06/05/2024 2:15 PM [facility] Anion Gap 6 3 - 11 LAB CHEMISTRY METHOD 06/05/2024 2:15 PM [facility] Glucose 94 70 - 100 mg/dL LAB CHEMISTRY METHOD 06/05/2024 2:15 PM [facility] BUN 14 5 - 25 mg/dL LAB CHEMISTRY METHOD 06/05/2024 2:15 PM [facility] Creatinine 0.91 0.50 - 1.10 mg/dL LAB CHEMISTRY METHOD 06/05/2024 2:15 PM [facility] eGFR 74 >=60 mL/min/1. 73m2 LAB CHEMISTRY METHOD 06/05/2024 2:15 PM [facility] Comment:Calculation based on the??Chronic Kidney Disease Epidemiology Collaboration (CKD-EPI) equation refit??without adjustment for race. BUN/Creatinine Ratio 15.4 LAB CHEMISTRY METHOD 06/05/2024 2:15 PM [facility] Calcium 9.0 8.5 - 10.5 mg/dL LAB CHEMISTRY METHOD 06/05/2024 2:15 PM [facility] Blood Venous blood specimen / Unknown Venipuncture / Unknown 06/05/2024 9:32 AM EST 06/05/2024 9:32 AM EST us Radha Herr MD LAB BLOOD ORDERABLES Final Resul t [facility] [address] [place] [address], * SCREENING MAMMOGRAPHY BI 2-VIEW BREAST INC [...] history of left breast cancer, status postlumpectomy [id number] Study: SCREENING MAMMOGRAPHY BI 2-VIEW BREAST INC [...] mg/dL Blood Venous blood specimen / Unknown [facility] Provider LAB BLOOD ORDERABLES Nabila l Result * Cervical Cancer Screening: HPV (09/08/2020) Pathologist [facility] Cervical Cancer Screening: HPV abstracted, negative [facility] Provider HEALTH MAINTENANCE Final Result * Hepatitis C Screening (07/25/2020) Pathologist [facility] Hepatitis C Screening abstracted [facility] Provider HEALTH MAINTENANCE Final Result * Colonoscopy (07/17/2020) [facility] Colonoscopy abstracted, no interpretation Anatomical Region Laterality Modality Other [facility] Provider HEALTH MAINTENANCE Final Result from Last 3 Months or Most Recently Relevant to Health Maintenance Insurance [facility] [employer] [place] [id number] Advance Directives Documents on File Type Date Recorded Patient Delivery Specialist Expl anation Health Care Decision (hx) 07/17/2020 [...] (hx) 11/09/2017 AD JOHNSON DIRECTIVE Care Teams Blanket Weaver Relationship Specialty Start Date End Date Radha Herr MD [address] [place] [id number] PCP - General 08/07/99
--- OUTSIDE RECORDS SUMMARY | 2024-07-11 10:52 | XMS_ITS | Clinical Summary ---
Author Organization [facility] Address [address] [place] [address] Care Team Providers Care Program Production Specialist Name Role Phone Radha Herr MD Primary Care Provider [phone] Allergies No known active allergies Medications Medication [...] age to complete this topic Care Teams Program Production Specialist Relationship Specialty Start Date End Date Radha Herr MD PCP - General Internal Medicine 10/26/19
[2024-07-11 18:07] LABS: Alanine Aminotransferase 26 U/L (0-31); Aspartate Amino Transferase 23 U/L (5-31); C Reactive Protein 0.83 mg/dL (< or = 0.50)
[2024-07-11 18:32] LABS: Erythrocyte Sedimentation Rate 25 MM/HR (0-20)
[2024-07-14 13:18] LABS: TS Negative Control Passed; TS Panel A 1; TS Panel B 0; TS Positive Control Passed; TSpotTB Negative (Negative)
== END 2024-07-11 08:51 | disposition home or self-care (01) ==
LOC: HO.HKASLDS 08:50
PROVIDERS: PCP Internal Medicine; Visit Provider Internal Medicine Rheumatology
DX: L40.50 Arthropathic psoriasis, unspecified (principal); Z79.60 Long term (current) use of unspecified immunomodulators and immunosuppressants; Z79.899 Other long term (current) drug therapy
CPT/HCPCS: 36415; 84450; 84460; 85652; 86140; 86481